=== PATIENT | female | born 1935 | race Caucasian/White ===

== ENCOUNTER 2023-02-25 13:06 | Inpatient (IN) ==
[2023-02-25] MEDS ORDERED: XOPENEX 1.25 MG/3 ML NEBULE NEB PRN (15:40)
[2023-02-25 16:02] VITALS: BMI 39.4
[2023-02-25 16:52] LABS: BASOPHILS % (AUTO) 0.2 % (0.2-1.0); EOSINOPHILS # (AUTO) 0.2 x10^3/uL (0.0-0.2); EOSINOPHILS % (AUTO) 1.6 % (0.9-2.9); HEMATOCRIT 34.7 % (36.0-47.0); HEMOGLOBIN 11.3 g/dL (12.0-16.0); LYMPHOCYTES # (AUTO) 0.7 X10^3/uL (1.3-2.9); LYMPHOCYTES % (AUTO) 4.7 % (21.0-51.0); MEAN CORPUSCULAR HGB CONC 32.4 g/dL (33.0-35.0); MEAN CORPUSCULAR VOLUME 98.6 fL (80.0-100.0); MEAN PLATELET VOLUME 11.3 fL (7.4-11.0); MONOCYTES % (AUTO) 13.1 % (0.0-13.0); NEUTROPHILS # (AUTO) 12.1 x10^3/uL (2.2-4.8); NEUTROPHILS % (AUTO) 80.4 % (42.0-75.0); PLATELET COUNT 123 X10^3/uL (150.0-450.0); RED BLOOD COUNT 3.52 X10^6/uL (3.5-5.4); RED CELL DISTRIBUTION WIDTH 15.2 % (11.6-16.5); WHITE BLOOD COUNT 15.1 X10^3/uL (3.6-10.0)
[2023-02-25] MEDS ORDERED: TYLENOL 325 MG TAB PO PRN (17:00)
[2023-02-25 17:06] LABS: CALCIUM 9.6 mg/dL (8.5-10.1); CARBON DIOXIDE 40.9 mmol/L (21-32); COR CA(FOR HYPOALB) 11.2 mg/dL (8.5-10.1); CREATININE 1.36 mg/dL (0.55-1.02); POTASSIUM 3.5 mmol/L (3.5-5.1); TOTAL PROTEIN 6.4 g/dL (6.4-8.2)
[2023-02-25] MEDS ORDERED: CONSULT PHARMACY - POTASSIUM & MAGNESIUM XX SCH (20:00)
[2023-02-25] MEDS: ELIQUIS PO SCH (20:04)
[2023-02-25] MEDS: SNACK - Diabetic Appropriate PO SCH (20:04)
[2023-02-25] MEDS: PRAVACHOL PO SCH (20:04)
--- NOTE | 2023-02-25 20:23 | PT/OTEVAL ---
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 Prior to hospitalization, pt was independent for all mobility tasks with use of rollator within home and short community distances. Pt able to drive short distances as well. DME: Rollator, FWW, Lift Chair (which she sleeps in), Shower Chair and O2 Concentrator (reports that she was using O2 as needed at home). Family assisted with household task including cleaning, meal prep and errands. Pt has several children and all live close by and assist as needed. History of Present Illness: Pt is an 88 year old female who was admitted to [facility] on 02/17/2023- per report pt was initially to ED on 02/12/2023 and diagnosed with UTI and sent home on oral ABT, pt's condition continued to worsen and then pt began with AMS at which time pt was brought back the ED for asse ssment and was admitted with dx of AMS, UTI and found to have pneumonia. Pt was treated and medically stabilized and due to deconditioning and weakness unable to return home independently and was transferred to [facility] for swing bed program on the afternoon of 02/25/2023. - COGNITION Mental Status: Alert, Oriented, Name, Date, Place, Purpose Communication Status: Verbal Ability to Follow Directions: 2 Step Affect: Calm - PAIN Back Pain Scale: Moderate (5-6) Comments: "I always have back pain like this, it's nothing new" - BED MOBILITY Rolling: Minimal Scooting: Moderate - TRANSFERS Supine to Sit: Minimal, Moderate Supine Comment: Min for supine to sit, mod for sit to supine for LE management Sit to Stand: Minimal Sit or Stand Pivot: Minimal Safety Comment: Proper hand placement during functional transfers Safety (requires cues for:): Hand Placement Precaution - BALANCE Static Sitting: Good Standing: Fair Balance Comment: Fair- Dynamic Sitting: Good Standing: Poor - NEUROMOTOR/SENSATION Hemal. Lower Ext Sensation: WFL Coordination: WFL Proprioception: WFL - ROM Bilateral LE ROM: WFL Muscle Tone: WFL - STRENGTH Bilateral LE Strength Number: 3 Other comment: 07/13 - GAIT Pt. ambulates how many feet?: 30 Amount of Assistance Required: Minimal Type of Assistive Device: Rolling Walker Comments: Pt's rollator. - TREATMENT Date: 02/25/23 Time: 16:15 Treatment Type: Evaluation Treatment Provided: Gait, Therapeutic Activities - TOTAL TREATMENT TIME Total Time: 120 - POST ASSESSMENT Post Assessment Comment: Pt was found supine in bed in room with son and daughter in law present in room. Pt able to provide history & PLOF information with family confirming & providing additional details. Pt does not sleep in a bed at home but in a lift recliner chair (and has for the last 15 years). Pt required min assist for transition from supine to sitting at EOB. Once at EOB, no LOB or complaints noted. Pt required mod cues for proper hand placement and then able to complete sit to stand transfer from EOB with min assist. Pt had initial period of unsteadiness when coming to standing position requiring mod assist for balance but then able to recover and require touch to min assist for balance. Pt performed gait tasks with rollator with min assist for 30ft x 2 requiring prolonged therapeutic rest break between bouts due to fatigue. Review of PT POC and goals with pt and family with goal of discharging back home with family support as needed and home health services. Pt is motivated to participate and would benefit from participation in swing bed therapy program to address all deficits and facilitate highest level of function and safe discharge planning. - EXIT DISPOSITION Exit Position: BED Call light in reach: Yes Bed Alarm On: YES Comments: Son and daughter in law present in room. PT/OT ASSESSMENT - PT Problem List: Decreased Bed Mobility, Decreased Transfers, Decreased Gait, Decreased Balance, Decreased Safety, Decreased LE Strength - PT GOALS Short Term Goals Days: 10 Mobility: NA Transfers: Pt will perform functional transfers with touch assist Gait: Pt will ambulate 100ft with rollator with touch assist Balance: Pt will increase static standing balance to good [place] Goals Days: 20 Mobility: NA Transfers: Pt will functional transfers with mod I Gait: Pt will ambulate 200ft with rollator with mod I Balance: Pt will increase dynamic standing balance to fair+/good- ROM/Strength: Pt will increase BLE strength to 5/5 Others: Pt will ascend/descend 4 steps with HR with supervision - PATIENT GOALS Patient/Family Goals: "I want to get my strength and independence back" Goals Discussed with Patient/Family: Yes Rehabilitation Potential: Good to meet stated goals Justification for Potential: Facilitate highest level of function and safe discharge planning Weakness and Barriers: None - PLAN Suggested Treatment Plan: Bed Mobility Training, Therapeutic Activity, Gait Training, Neuro Re-education, Therapeutic Ex with HEP, Patient Education - FREQUENCY AND DURATION PT: 5-6x per week x 20 days Expected Continuation of Care at Discharge: Home Health
[2023-02-25] MEDS ORDERED: PULMICORT NEB TX 0.5 MG NEB SCH (21:00)
[2023-02-25] MEDS ORDERED: DUONEB 0.5 MG/3 MG (3 mL) NEB SCH (21:00)
[2023-02-25] MEDS ORDERED: MICRO K EXTEN CAP 10 MEQ PO SCH (21:00)
[2023-02-25] MEDS ORDERED: COMBIVENT RESPIMAT INH SCH (21:00)
[2023-02-26] MEDS: SYNTHROID 112 mcg TAB PO SCH (06:15)
[2023-02-26] MEDS: GLUCOTROL PO SCH (06:16)
--- NOTE | 2023-02-26 08:01 | RAD ---
EXAM:Portable chestHISTORY:PneumoniaCOMPARISON:None r.br.br.br noted. Right lung and left upper lung harvey are clear. Blunting of left costophrenic angle suggest left pleural effusion. There is increased density in the retrocardiac area of left lower lobe obscuring the hemidiaphragm. Findings could be on the basis of pleural effusion, atelectasis, consolidation or combination. Bony thorax is unremarkable.IMPRESSION:Cardiomegaly without congestive heart failureLeft pleural effusionIncreased density retrocardiac area left lower lobe obscuring left hemidiaphragm. Differential diagnosis as aboveTHIS IS AN ELECTRONICALLY VERIFIED FINAL ORCCET7402/26/2023 7:58 AM - Electronically signed by Trey Adame MD
[2023-02-26] MEDS ORDERED: [UNRECOGNIZED DRUG - OTHER] IN SCH (09:00)
[2023-02-26] MEDS ORDERED: TOPROL XL PO ONE (09:01)
[2023-02-26] MEDS: COZAAR PO SCH (09:10)
[2023-02-26] MEDS: TOPROL XL PO SCH (09:11)
[2023-02-26] MEDS: JANUVIA PO SCH (09:12)
[2023-02-26] MEDS: VITAMIN D3 25 mcg (1,000 UNITS) PO SCH (09:13)
[2023-02-26] MEDS: ELIQUIS PO SCH ×2 (09:14→20:14)
[2023-02-26] MEDS: CARDIZEM CD 180 MG 24-HR PO SCH (09:14)
[2023-02-26] MEDS: ZYLOPRIM PO SCH (09:14)
[2023-02-26] MEDS: ZINC SULFATE PO SCH (09:14)
[2023-02-26] MEDS: ULTRAM PO PRN (12:35)
[2023-02-26] MEDS ORDERED: NovoLIN R (or HumuLIN R) ONE (17:06)
[2023-02-26] MEDS: NovoLIN R (or HumuLIN R) SC PRN ×2 (17:12→20:21)
[2023-02-26] MEDS: PRAVACHOL PO SCH (20:14)
[2023-02-26] MEDS: SNACK - Diabetic Appropriate PO SCH (20:17)
[2023-02-27] MEDS: SYNTHROID 112 mcg TAB PO SCH (06:01)
[2023-02-27] MEDS: GLUCOTROL PO SCH (06:01)
--- NOTE | 2023-02-27 06:49 | DR.H&P ---
H&P History & Physical for Day of: H&P Date: 02/25/23 Chief Complaint Chief Complaint: Physical rehabilitation Allergies Allergies Allergy/AdvReac Type Severity Reaction Status Date / Time iron Allergy Verified 02/25/23 16:51 History of Present Illness History of Present Illness: Patient is a 88-year-old female with a history of hypothyroidism, diabetes mellitus, hyperlipidemia, COPD(BL~2L), atrial fibrillation admitted as a swing bed for physical rehabilitation. She was recently discharged after having altered mental status due to urinary tract infection and pneumonia. She completed antibiotic course of Zithromax for 5 days and Rocephin for 8 days. Labs: WBC 15.1, hemoglobin 11.3, platelets 123, sodium 139, potassium 3.5, creatinine 1.36, glucose 131. Patient will continue with physical therapy. We will restart all home medications. Patient denies any symptoms of infection including fevers or chills. We will continue to closely monitor and follow-up labs. Past Surgical History Surgical History: Cholecystectomy, Hysterectomy and Ortho Surgery Family History Family Medical History: Diabetes Mellitus and Hypertension Medications Home Medications: Home Medications Medication Instructions Recorded Confirmed Type acetaminophen 325 mg tablet 650 mg PO Q6H 02/25/23 02/25/23 History (Tylenol) allopurinol 100 mg tablet 100 mg PO DAILY 02/25/23 02/25/23 History apixaban 2.5 mg tablet (Eliquis) 2.5 mg PO BID 02/25/23 02/25/23 History cholecalciferol (vitamin D3) 50 2,000 mcg PO DAILY 02/25/23 02/25/23 History mcg (2,000 unit) tablet (Vitamin D3) diltiazem HCl 180 mg capsule,24 180 mg PO DAILY 02/25/23 02/25/23 History hr,extended release fluticasone furoate 200 1 inh inhalation DAILY 02/25/23 02/25/23 History mcg-vilanterol 25 mcg/dose inhalation powder (Breo Ellipta) glipizide 10 mg tablet 10 mg PO BID 02/25/23 02/25/23 History ipratropium 20 mcg-albuterol 100 1 puff inhalation QID 02/25/23 02/25/23 History mcg/actuation mist for inhalation (Combivent Respimat) levothyroxine 112 mcg tablet 112 mcg PO DAILY 02/25/23 02/25/23 History (Synthroid) losartan 100 mg tablet 100 mg PO QDAY 02/25/23 02/25/23 History metoprolol succinate 200 mg 200 mg PO QDAY 02/25/23 02/25/23 History tablet,extended release 24 hr pravastatin 20 mg tablet 40 mg PO HS 02/25/23 02/25/23 History sitagliptin phosphate 25 mg tablet 50 mg PO DAILY 02/25/23 02/25/23 History (Januvia) zinc gluconate 50 mg tablet 50 mg PO DAILY 02/25/23 02/25/23 History Labs 02/25/23 16:28 02/25/23 16:28 Labs: Laboratory WBC 15.1 X10^3/uL (3.6-10.0) H 02/25/23 16: RBC 3.52 X10^6/uL (3.5-5.4) 02/25/23 16:28 Hgb 11.3 g/dL (12.0-16.0) L 02/25/23 16:28 Hct 34.7 % (36.0-47.0) L 02/25/23 16:28 MCV 98.6 fL (80.0-100.0) 02/25/23 16: MCH 32.0 pg (27.0-34.0) 02/25/23 16:28 MCHC 32.4 g/dL (33.0-35.0) L 02/25/23 16:28 RDW 15.2 % (11.6-16.5) 02/25/23 16:28 Plt Count 123 X10^3/uL (150.0-450.0) L 02/25/23 16:28 MPV 11.3 fL (7.4-11.0) H 02/25/23 16:28 Neut % (Auto) 80.4 % (42.0-75.0) H 02/25/23 16:28 Lymph % (Auto) 4.7 % (21.0-51.0) L 02/25/23 16:28 [place] % (Auto) 13.1 % (0.0-13.0) H 02/25/23 16:28 Eos % (Auto) 1.6 % (0.9-2.9) 02/25/23 16:28 Baso % (Auto) 0.2 % (0.2-1.0) 02/25/23 16:28 Neut # (Auto) 12.1 x10^3/uL (2.2-4.8) H 02/25/23 16:28 Lymph # (Auto) 0.7 X10^3/uL (1.3-2.9) L 02/25/23 16:28 [place] # (Auto) 2.0 x10^3/uL (0.3-0.8) H 02/25/23 16:28 Eos # (Auto) 0.2 x10^3/uL (0.0-0.2) 02/25/23 16: Baso # (Auto) 0.0 X10^3/uL (0.0-0.1) 02/25/23 16: Absolute Nucleated RBC 0.1 /100WBC 02/25/23 16:28 Sodium 139 mmol/L (136-145) 02/25/23 16:28 Corrected Sodium 140 mmol/L (136-145) 02/25/23 16:28 Potassium 3.5 mmol/L (3.5-5.1) 02/25/23 16: Chloride 96 mmol/L (98-107) L 02/25/23 16:28 Carbon Dioxide 40.9 mmol/L (21-32) H 02/25/23 16:28 BUN 44 mg/dL (7-18) H 02/25/23 16:28 Creatinine 1.36 mg/dL (0.55-1.02) H 02/25/23 16:28 Est GFR (MDRD) Af Amer 47 (>60) L 02/25/23 16:28 Est GFR (MDRD) Non-Af 39 (>60) L 02/25/23 16:28 Glucose 131 mg/dL (65-99) H 02/25/23 16:28 POC Glucose (mg/dL) 149 mg/dL (65-99) H 02/27/23 05:39 Calcium 9.6 mg/dL (8.5-10.1) 02/25/23 16:28 Corrected Calcium 11.2 mg/dL (8.5-10.1) H 02/25/23 16:28 Magnesium 2.3 mg/dL (2.0-2.9) 02/26/23 05:47 Total Bilirubin 0.40 mg/dL (0.2-1.0) 02/25/23 16:28 AST 47 Units/L (15-37) H 02/25/23 16:28 ALT 39 Units/L (12-78) 02/25/23 16:28 Alkaline Phosphatase 70 Units/L (46-116) 02/25/23 16:28 Total Protein 6.4 g/dL (6.4-8.2) 02/25/23 16:28 Albumin 2.0 g/dL (3.4-5.0) L 02/25/23 16:28 Globulin 4.4 g/dL (2.5-4.5) 02/25/23 16:28 Albumin/Globulin Ratio 0.5 Ratio (1.1-2.1) L 02/25/23 16:28 Review of Systems Constitutional: Weakness Eyes: No Symptoms Reported ENT: No Symptoms Reported Respiratory: No Symptoms Reported Cardiovascular: No Symptoms Reported Gastrointestinal: No Symptoms Reported Genitourinary: No Symptoms Reported Musculoskeletal: No Symptoms Reported Skin: No Symptoms Reported Neurological: No Symptoms Reported Oriented: Normal Eyes: Normal Ear: Normal Nose: Normal Throat: Normal Respiratory: Diminished Throughout Cardiovascular: Normal : Normal Auscultation: Bowel Sounds: Normal Palpation: Normal Tenderness: Normal Skin: Normal Musculoskeletal: Normal Psychiatric: Normal Mood Description: Calm and Appropriate Affect: Normal Speech Pattern: Clear and Appropriate Assessment/Plan (1) Hypothyroidism: Status: Active (2) Diabetes mellitus type 2: Status: Active (3) Osteoarthritis: Status: Active (4) Essential hypertension: Status: Active (5) Hyperlipidemia: Status: Active (6) Chronic atrial fibrillation: Status: Acute Review H&P Reviewed: Yes Patient was examined?: Yes
[2023-02-27] MEDS ORDERED: TOPROL XL PO ONE (08:30)
[2023-02-27] MEDS: ELIQUIS PO SCH ×2 (08:58→20:37)
[2023-02-27] MEDS: VITAMIN D3 25 mcg (1,000 UNITS) PO SCH (08:58)
[2023-02-27] MEDS: CARDIZEM CD 180 MG 24-HR PO SCH (08:59)
[2023-02-27] MEDS: ZINC SULFATE PO SCH (08:59)
[2023-02-27] MEDS: ZYLOPRIM PO SCH (08:59)
[2023-02-27] MEDS: JANUVIA PO SCH (08:59)
[2023-02-27] MEDS: TOPROL XL PO SCH (08:59)
[2023-02-27] MEDS: COZAAR PO SCH (08:59)
[2023-02-27] MEDS: SNACK - Diabetic Appropriate PO SCH (20:37)
[2023-02-27] MEDS: PRAVACHOL PO SCH (20:37)
[2023-02-28] MEDS: SYNTHROID 112 mcg TAB PO SCH (06:07)
[2023-02-28] MEDS: GLUCOTROL PO SCH (06:07)
[2023-02-28] MEDS ORDERED: TOPROL XL PO ONE (08:22)
[2023-02-28] MEDS: ELIQUIS PO SCH ×2 (09:18→20:38)
[2023-02-28] MEDS: JANUVIA PO SCH (09:18)
[2023-02-28] MEDS: VITAMIN D3 25 mcg (1,000 UNITS) PO SCH (09:19)
[2023-02-28] MEDS: CARDIZEM CD 180 MG 24-HR PO SCH (09:19)
[2023-02-28] MEDS: ZINC SULFATE PO SCH (09:19)
[2023-02-28] MEDS: TOPROL XL PO SCH (09:19)
[2023-02-28] MEDS: COZAAR PO SCH (09:19)
[2023-02-28] MEDS: ZYLOPRIM PO SCH (09:19)
[2023-02-28] MEDS: PRAVACHOL PO SCH (20:38)
[2023-02-28] MEDS: SNACK - Diabetic Appropriate PO SCH (20:57)
[2023-03-01 05:12] LABS: BASOPHILS # (AUTO) 0.1 X10^3/uL (0.0-0.1); BASOPHILS % (AUTO) 1.4 % (0.2-1.0); EOSINOPHILS # (AUTO) 0.3 x10^3/uL (0.0-0.2); EOSINOPHILS % (AUTO) 4.2 % (0.9-2.9); HEMATOCRIT 30.1 % (36.0-47.0); HEMOGLOBIN 9.6 g/dL (12.0-16.0); LYMPHOCYTES # (AUTO) 0.8 X10^3/uL (1.3-2.9); LYMPHOCYTES % (AUTO) 10.7 % (21.0-51.0); MEAN CORPUSCULAR HEMOGLOBIN 31.8 pg (27.0-34.0); MEAN CORPUSCULAR HGB CONC 31.8 g/dL (33.0-35.0); MEAN CORPUSCULAR VOLUME 99.9 fL (80.0-100.0); MEAN PLATELET VOLUME 10.3 fL (7.4-11.0); MONOCYTES # (AUTO) 0.8 x10^3/uL (0.3-0.8); MONOCYTES % (AUTO) 11.3 % (0.0-13.0); NEUTROPHILS # (AUTO) 5.2 x10^3/uL (2.2-4.8); NEUTROPHILS % (AUTO) 72.4 % (42.0-75.0); PLATELET COUNT 146 X10^3/uL (150.0-450.0); RED BLOOD COUNT 3.01 X10^6/uL (3.5-5.4); RED CELL DISTRIBUTION WIDTH 15.1 % (11.6-16.5); WHITE BLOOD COUNT 7.1 X10^3/uL (3.6-10.0)
[2023-03-01 05:20] LABS: ALANINE AMINOTRANSFERASE 41 Units/L (12-78); ALBUMIN 1.9 g/dL (3.4-5.0); ALKALINE PHOSPHATASE 63 Units/L (46-116); ASPARTATE AMINO TRANSFERASE 28 Units/L (15-37); BLOOD UREA NITROGEN 36 mg/dL (7-18); CALCIUM 9.4 mg/dL (8.5-10.1); CHLORIDE 101 mmol/L (98-107); COR CA(FOR HYPOALB) 11.1 mg/dL (8.5-10.1); COR NA(FOR HYPERGLY) 144 mmol/L (136-145); GLUCOSE 132 mg/dL (65-99); POTASSIUM 4.1 mmol/L (3.5-5.1); SODIUM 143 mmol/L (136-145); TOTAL PROTEIN 5.5 g/dL (6.4-8.2); eGFR NON BLACK RACES 56 (>60)
[2023-03-01 05:24] LABS: CARBON DIOXIDE 43.8 mmol/L (21-32)
[2023-03-01] MEDS: GLUCOTROL PO SCH (06:02)
[2023-03-01] MEDS: SYNTHROID 112 mcg TAB PO SCH (06:02)
[2023-03-01] MEDS ORDERED: TOPROL XL PO ONE (08:59)
[2023-03-01] MEDS: ZYLOPRIM PO SCH (09:24)
[2023-03-01] MEDS: VITAMIN D3 25 mcg (1,000 UNITS) PO SCH (09:24)
[2023-03-01] MEDS: JANUVIA PO SCH (09:24)
[2023-03-01] MEDS: COZAAR PO SCH (09:24)
[2023-03-01] MEDS: ELIQUIS PO SCH ×2 (09:24→20:13)
[2023-03-01] MEDS: TOPROL XL PO SCH (09:24)
[2023-03-01] MEDS: ZINC SULFATE PO SCH (09:24)
[2023-03-01] MEDS: CARDIZEM CD 180 MG 24-HR PO SCH (09:25)
[2023-03-01] MEDS: SNACK - Diabetic Appropriate PO SCH (20:01)
[2023-03-01] MEDS ORDERED: STERILE WATER IRRIGATION IR ONE (20:09)
[2023-03-01] MEDS: PRAVACHOL PO SCH (20:13)
[2023-03-02] MEDS: SYNTHROID 112 mcg TAB PO SCH (05:47)
[2023-03-02] MEDS: GLUCOTROL PO SCH (06:00)
[2023-03-02] MEDS ORDERED: TOPROL XL PO ONE (09:21)
[2023-03-02] MEDS: ELIQUIS PO SCH ×2 (09:37→20:18)
[2023-03-02] MEDS: VITAMIN D3 25 mcg (1,000 UNITS) PO SCH (09:37)
--- NOTE | 2023-03-02 09:37 | PCM.PROG ---
Progress Note Progress Note for Day of Date of Exam: 02/27/23 Subjective Subjective: Patient is a 88-year-old female with a history of hypothyroidism, diabetes mellitus, hyperlipidemia, COPD(BL~2L), atrial fibrillation admitted as a swing bed for physical rehabilitation after recovering from urinary tract infection and pneumonia. This morning she is resting comfortably in bed, no acute events overnight. Labs: WBC 15.1, hemoglobin 11.3, platelets 123, sodium 139, potassium 3.5, creatinine 1.36, glucose 131. Patient will continue with physical therapy. Home medications have been resumed. Otherwise, continue with current treatment plan. We will continue to closely monitor. Past Medical Family Social History Allergies: Allergies iron Allergy (Verified 02/25/23 16:51) Review of Systems ROS: No change since H&P Vital Signs and I&O's Vital Signs: Vital Signs Temperature 97.8 F Pulse Rate [Left Brachial] 76 Respiratory Rate 20 Blood Pressure [Left Arm] 157/60 O2 Sat by Pulse Oximetry 96 Intake and Output: Intake & Output 02/27/23 02/28/23 03/01/23 03/02/23 23:59 23:59 23:59 23:59 Intake Total 1482 / 1482 1320 / 1320 1240 / 1240 360 / 360 Balance 1482 / 1482 1320 / 1320 1240 / 1240 360 / 360 Physical Exam Oriented: Normal Eyes: Normal Ear: Normal Nose: Normal Throat: Normal Respiratory: Normal Cardiovascular: Normal : Normal Auscultation: Bowel Sounds: Normal Tenderness: Normal Skin: Normal Musculoskeletal: Normal Psychiatric: Normal Mood Description: Calm and Appropriate Affect: Normal Speech Pattern: Clear Laboratory and Diagnostics 03/01/23 04:13 03/01/23 04:13 Labs: Laboratory WBC 7.1 X10^3/uL (3.6-10.0) 03/01/23 04:13 RBC 3.01 X10^6/uL (3.5-5.4) L 03/01/23 04:13 Hgb 9.6 g/dL (12.0-16.0) L 03/01/23 04:13 Hct 30.1 % (36.0-47.0) L 03/01/23 04:13 MCV 99.9 fL (80.0-100.0) 03/01/23 04:13 MCH 31.8 pg (27.0-34.0) 03/01/23 04:13 MCHC 31.8 g/dL (33.0-35.0) L 03/01/23 04:13 RDW 15.1 % (11.6-16.5) 03/01/23 04:13 Plt Count 146 X10^3/uL (150.0-450.0) L 03/01/23 04:13 MPV 10.3 fL (7.4-11.0) 03/01/23 04:13 Neut % (Auto) 72.4 % (42.0-75.0) 03/01/23 04:13 Lymph % (Auto) 10.7 % (21.0-51.0) L 03/01/23 04:13 [place] % (Auto) 11.3 % (0.0-13.0) 03/01/23 04:13 Eos % (Auto) 4.2 % (0.9-2.9) H 03/01/23 04:13 Baso % (Auto) 1.4 % (0.2-1.0) H 03/01/23 04:13 Neut # (Auto) 5.2 x10^3/uL (2.2-4.8) H 03/01/23 04:13 Lymph # (Auto) 0.8 X10^3/uL (1.3-2.9) L 03/01/23 04:13 [place] # (Auto) 0.8 x10^3/uL (0.3-0.8) 03/01/23 04:13 Eos # (Auto) 0.3 x10^3/uL (0.0-0.2) H 03/01/23 04:13 Baso # (Auto) 0.1 X10^3/uL (0.0-0.1) 03/01/23 04:13 Absolute Nucleated RBC 0.0 /100WBC 03/01/23 04:13 Sodium 143 mmol/L (136-145) 03/01/23 04:13 Corrected Sodium 144 mmol/L (136-145) 03/01/23 04:13 Potassium 4.1 mmol/L (3.5-5.1) 03/01/23 04:13 Chloride 101 mmol/L (98-107) 03/01/23 04:13 Carbon Dioxide 43.8 mmol/L (21-32) H 03/01/23 04:13 BUN 36 mg/dL (7-18) H 03/01/23 04:13 Creatinine 1.00 mg/dL (0.55-1.02) 03/01/23 04:13 Est GFR (MDRD) Af Amer > 60 (>60) 03/01/23 04:13 Est GFR (MDRD) Non-Af 56 (>60) L 03/01/23 04:13 Glucose 132 mg/dL (65-99) H 03/01/23 04:13 POC Glucose (mg/dL) 119 mg/dL (65-99) H 03/02/23 05:12 Calcium 9.4 mg/dL (8.5-10.1) 03/01/23 04:13 Corrected Calcium 11.1 mg/dL (8.5-10.1) H 03/01/23 04:13 Magnesium 2.3 mg/dL (2.0-2.9) 02/26/23 05:47 Total Bilirubin 0.30 mg/dL (0.2-1.0) 03/01/23 04:13 AST 28 Units/L (15-37) 03/01/23 04:13 ALT 41 Units/L (12-78) 03/01/23 04:13 Alkaline Phosphatase 63 Units/L (46-116) 03/01/23 04:13 Total Protein 5.5 g/dL (6.4-8.2) L 03/01/23 04:13 Albumin 1.9 g/dL (3.4-5.0) L 03/01/23 04:13 Globulin 3.6 g/dL (2.5-4.5) 03/01/23 04:13 Albumin/Globulin Ratio 0.5 Ratio (1.1-2.1) L 03/01/23 04:13 Plan (1) Hypothyroidism: Status: Active (2) Diabetes mellitus type 2: Status: Active (3) Osteoarthritis: Status: Active (4) Essential hypertension: Status: Active (5) Hyperlipidemia: Status: Active (6) Chronic atrial fibrillation: Status: Acute
[2023-03-02] MEDS: COZAAR PO SCH (09:38)
[2023-03-02] MEDS: JANUVIA PO SCH (09:38)
[2023-03-02] MEDS: CARDIZEM CD 180 MG 24-HR PO SCH (09:38)
[2023-03-02] MEDS: ZINC SULFATE PO SCH (09:39)
[2023-03-02] MEDS: TOPROL XL PO SCH (09:39)
[2023-03-02] MEDS: ZYLOPRIM PO SCH (09:39)
[2023-03-02] MEDS: NovoLIN R (or HumuLIN R) SC PRN (18:09)
[2023-03-02] MEDS: PRAVACHOL PO SCH (20:18)
[2023-03-02] MEDS: SNACK - Diabetic Appropriate PO SCH (20:33)
[2023-03-02] MEDS: NYSTATIN POWDER TOP PRN (20:40)
--- NOTE | 2023-03-02 20:49 | PCM.PROG ---
Progress Note Progress Note for Day of Date of Exam: 03/02/23 Subjective Subjective: Patient is a 88-year-old female with a history of hypothyroidism, diabetes mellitus, hyperlipidemia, COPD(BL~2L), atrial fibrillation admitted as a swing bed for physical rehabilitation after recovering from urinary tract infection and pneumonia. This morning she is sitting in recliner. She states she has been working with physical therapy and it is helping her. No acute events overnight. Labs: WBC 7.1, hemoglobin 9.6, platelets 146, sodium 143, potassium 4.1, creatinine 1.00, glucose 132. Patient will continue with physical therapy. Home medications have been resumed. Otherwise, continue with current treatment plan. We will continue to closely monitor. Past Medical Family Social History Allergies: Allergies iron Allergy (Verified 02/25/23 16:51) Review of Systems ROS: No change since H&P Vital Signs and I&O's Vital Signs: Vital Signs Temperature 98.7 F Pulse Rate [Left Brachial] 62 Pulse Rate 67 Respiratory Rate 25 Blood Pressure [Left Arm] 126/62 O2 Sat by Pulse Oximetry 98 O2 Sat by Pulse Oximetry 95 Intake and Output: Intake & Output 02/27/23 02/28/23 03/01/23 03/02/23 23:59 23:59 23:59 23:59 Intake Total 1482 / 1482 1320 / 1320 1240 / 1240 1080 / 1080 Balance 1482 / 1482 1320 / 1320 1240 / 1240 1080 / 1080 Physical Exam Oriented: Normal Eyes: Normal Ear: Normal Nose: Normal Throat: Normal Respiratory: Normal Cardiovascular: Normal : Normal Auscultation: Bowel Sounds: Normal Tenderness: Normal Skin: Normal Musculoskeletal: Normal Psychiatric: Normal Mood Description: Calm and Appropriate Affect: Normal Speech Pattern: Clear Laboratory and Diagnostics 03/01/23 04:13 03/01/23 04:13 Labs: Laboratory WBC 7.1 X10^3/uL (3.6-10.0) 03/01/23 04:13 RBC 3.01 X10^6/uL (3.5-5.4) L 03/01/23 04:13 Hgb 9.6 g/dL (12.0-16.0) L 03/01/23 04:13 Hct 30.1 % (36.0-47.0) L 03/01/23 04:13 MCV 99.9 fL (80.0-100.0) 03/01/23 04:13 MCH 31.8 pg (27.0-34.0) 03/01/23 04:13 MCHC 31.8 g/dL (33.0-35.0) L 03/01/23 04:13 RDW 15.1 % (11.6-16.5) 03/01/23 04:13 Plt Count 146 X10^3/uL (150.0-450.0) L 03/01/23 04:13 MPV 10.3 fL (7.4-11.0) 03/01/23 04:13 Neut % (Auto) 72.4 % (42.0-75.0) 03/01/23 04:13 Lymph % (Auto) 10.7 % (21.0-51.0) L 03/01/23 04:13 [place] % (Auto) 11.3 % (0.0-13.0) 03/01/23 04:13 Eos % (Auto) 4.2 % (0.9-2.9) H 03/01/23 04:13 Baso % (Auto) 1.4 % (0.2-1.0) H 03/01/23 04:13 Neut # (Auto) 5.2 x10^3/uL (2.2-4.8) H 03/01/23 04:13 Lymph # (Auto) 0.8 X10^3/uL (1.3-2.9) L 03/01/23 04:13 [place] # (Auto) 0.8 x10^3/uL (0.3-0.8) 03/01/23 04:13 Eos # (Auto) 0.3 x10^3/uL (0.0-0.2) H 03/01/23 04:13 Baso # (Auto) 0.1 X10^3/uL (0.0-0.1) 03/01/23 04:13 Absolute Nucleated RBC 0.0 /100WBC 03/01/23 04:13 Sodium 143 mmol/L (136-145) 03/01/23 04:13 Corrected Sodium 144 mmol/L (136-145) 03/01/23 04:13 Potassium 4.1 mmol/L (3.5-5.1) 03/01/23 04:13 Chloride 101 mmol/L (98-107) 03/01/23 04:13 Carbon Dioxide 43.8 mmol/L (21-32) H 03/01/23 04:13 BUN 36 mg/dL (7-18) H 03/01/23 04:13 Creatinine 1.00 mg/dL (0.55-1.02) 03/01/23 04:13 Est GFR (MDRD) Af Amer > 60 (>60) 03/01/23 04:13 Est GFR (MDRD) Non-Af 56 (>60) L 03/01/23 04:13 Glucose 132 mg/dL (65-99) H 03/01/23 04:13 POC Glucose (mg/dL) 176 mg/dL (65-99) H 03/02/23 19:12 Calcium 9.4 mg/dL (8.5-10.1) 03/01/23 04:13 Corrected Calcium 11.1 mg/dL (8.5-10.1) H 03/01/23 04:13 Magnesium 2.3 mg/dL (2.0-2.9) 02/26/23 05:47 Total Bilirubin 0.30 mg/dL (0.2-1.0) 03/01/23 04:13 AST 28 Units/L (15-37) 03/01/23 04:13 ALT 41 Units/L (12-78) 03/01/23 04:13 Alkaline Phosphatase 63 Units/L (46-116) 03/01/23 04:13 Total Protein 5.5 g/dL (6.4-8.2) L 03/01/23 04:13 Albumin 1.9 g/dL (3.4-5.0) L 03/01/23 04:13 Globulin 3.6 g/dL (2.5-4.5) 03/01/23 04:13 Albumin/Globulin Ratio 0.5 Ratio (1.1-2.1) L 03/01/23 04:13 Plan (1) Hypothyroidism: Status: Active (2) Diabetes mellitus type 2: Status: Active (3) Osteoarthritis: Status: Active (4) Essential hypertension: Status: Active (5) Hyperlipidemia: Status: Active (6) Chronic atrial fibrillation: Status: Acute
[2023-03-03] MEDS: SYNTHROID 112 mcg TAB PO SCH (05:20)
[2023-03-03] MEDS: GLUCOTROL PO SCH (06:06)
[2023-03-03] MEDS ORDERED: TOPROL XL PO ONE (08:55)
[2023-03-03] MEDS: CARDIZEM CD 180 MG 24-HR PO SCH (09:00)
[2023-03-03] MEDS: ZYLOPRIM PO SCH (09:00)
[2023-03-03] MEDS: VITAMIN D3 25 mcg (1,000 UNITS) PO SCH (09:00)
[2023-03-03] MEDS: COZAAR PO SCH (09:00)
[2023-03-03] MEDS: ZINC SULFATE PO SCH (09:00)
[2023-03-03] MEDS: JANUVIA PO SCH (09:01)
[2023-03-03] MEDS: TOPROL XL PO SCH (09:01)
[2023-03-03] MEDS: ELIQUIS PO SCH ×2 (09:01→20:23)
[2023-03-03] MEDS: PRAVACHOL PO SCH (20:23)
[2023-03-03] MEDS: SNACK - Diabetic Appropriate PO SCH (20:25)
[2023-03-04 04:58] LABS: BASOPHILS # (AUTO) 0.1 X10^3/uL (0.0-0.1); BASOPHILS % (AUTO) 0.9 % (0.2-1.0); EOSINOPHILS # (AUTO) 0.2 x10^3/uL (0.0-0.2); EOSINOPHILS % (AUTO) 3.5 % (0.9-2.9); HEMATOCRIT 30.8 % (36.0-47.0); HEMOGLOBIN 9.9 g/dL (12.0-16.0); LYMPHOCYTES # (AUTO) 0.7 X10^3/uL (1.3-2.9); LYMPHOCYTES % (AUTO) 11.7 % (21.0-51.0); MEAN CORPUSCULAR HEMOGLOBIN 31.8 pg (27.0-34.0); MEAN CORPUSCULAR VOLUME 99.4 fL (80.0-100.0); MEAN PLATELET VOLUME 9.6 fL (7.4-11.0); MONOCYTES # (AUTO) 0.6 x10^3/uL (0.3-0.8); MONOCYTES % (AUTO) 10.7 % (0.0-13.0); NEUTROPHILS # (AUTO) 4.2 x10^3/uL (2.2-4.8); NEUTROPHILS % (AUTO) 73.2 % (42.0-75.0); PLATELET COUNT 159 X10^3/uL (150.0-450.0); RED CELL DISTRIBUTION WIDTH 14.6 % (11.6-16.5); WHITE BLOOD COUNT 5.8 X10^3/uL (3.6-10.0)
[2023-03-04 05:06] LABS: ALANINE AMINOTRANSFERASE 38 Units/L (12-78); ALBUMIN 2.2 g/dL (3.4-5.0); ALKALINE PHOSPHATASE 72 Units/L (46-116); ASPARTATE AMINO TRANSFERASE 25 Units/L (15-37); BLOOD UREA NITROGEN 30 mg/dL (7-18); CALCIUM 9.6 mg/dL (8.5-10.1); CARBON DIOXIDE 43.1 mmol/L (21-32); CHLORIDE 103 mmol/L (98-107); COR NA(FOR HYPERGLY) 142 mmol/L (136-145); CREATININE 0.99 mg/dL (0.55-1.02); GLUCOSE 111 mg/dL (65-99); POTASSIUM 4.4 mmol/L (3.5-5.1); SODIUM 142 mmol/L (136-145); TOTAL PROTEIN 5.6 g/dL (6.4-8.2); eGFR NON BLACK RACES 56 (>60)
[2023-03-04] MEDS: GLUCOTROL PO SCH (06:02)
[2023-03-04] MEDS: SYNTHROID 112 mcg TAB PO SCH (06:02)
[2023-03-04] MEDS ORDERED: TOPROL XL PO ONE (07:41)
[2023-03-04] MEDS: ZINC SULFATE PO SCH (08:55)
[2023-03-04] MEDS: ZYLOPRIM PO SCH (08:55)
[2023-03-04] MEDS: VITAMIN D3 25 mcg (1,000 UNITS) PO SCH (08:55)
[2023-03-04] MEDS: TOPROL XL PO SCH (08:55)
[2023-03-04] MEDS: COZAAR PO SCH (08:56)
[2023-03-04] MEDS: JANUVIA PO SCH (08:56)
[2023-03-04] MEDS: ELIQUIS PO SCH ×2 (08:56→21:43)
[2023-03-04] MEDS: CARDIZEM CD 180 MG 24-HR PO SCH (08:57)
[2023-03-04] MEDS: NovoLIN R (or HumuLIN R) SC PRN (16:38)
[2023-03-04] MEDS: SNACK - Diabetic Appropriate PO SCH (21:43)
[2023-03-04] MEDS: PRAVACHOL PO SCH (21:43)
[2023-03-05] MEDS: SYNTHROID 112 mcg TAB PO SCH (05:31)
[2023-03-05] MEDS: GLUCOTROL PO SCH (06:04)
[2023-03-05] MEDS ORDERED: TOPROL XL PO ONE (08:14)
[2023-03-05] MEDS: VITAMIN D3 25 mcg (1,000 UNITS) PO SCH (08:19)
[2023-03-05] MEDS: ZINC SULFATE PO SCH (08:23)
[2023-03-05] MEDS: COZAAR PO SCH (08:25)
[2023-03-05] MEDS: TOPROL XL PO SCH (08:28)
[2023-03-05] MEDS: ELIQUIS PO SCH ×2 (08:29→20:29)
[2023-03-05] MEDS: ZYLOPRIM PO SCH (08:32)
[2023-03-05] MEDS: CARDIZEM CD 180 MG 24-HR PO SCH (08:34)
[2023-03-05] MEDS: JANUVIA PO SCH (08:35)
--- NOTE | 2023-03-05 14:47 | PCM.PROG ---
Progress Note Progress Note for Day of Date of Exam: 03/04/23 Subjective Subjective: Patient is a 88-year-old female with a history of hypothyroidism, diabetes mellitus, hyperlipidemia, COPD(BL~2L), atrial fibrillation admitted as a swing bed for physical rehabilitation after recovering from urinary tract infection and pneumonia. She is resting in bed this morning. She does continue to work with physical therapy and is making progress. No acute events overnight. Labs: WBC 5.8, hemoglobin 9.9, platelets 159, sodium 142, potassium 4.4, creatinine 0.99, glucose 111. Patient will continue with physical therapy. Home medications have been resumed. Otherwise, continue with current treatment plan. We will continue to closely monitor. Past Medical Family Social History Allergies: Allergies iron Allergy (Verified 02/25/23 16:51) Review of Systems ROS: No change since H&P Vital Signs and I&O's Intake and Output: Intake & Output 03/02/23 03/03/23 03/04/23 03/05/23 23:59 23:59 23:59 23:59 Intake Total 1560 / 1560 1606 / 1606 760 / 760 250 / 250 Balance 1560 / 1560 1606 / 1606 760 / 760 250 / 250 Physical Exam Oriented: Normal Eyes: Normal Ear: Normal Nose: Normal Throat: Normal Respiratory: Normal Cardiovascular: Normal : Normal Auscultation: Bowel Sounds: Normal Tenderness: Normal Skin: Normal Musculoskeletal: Normal Psychiatric: Normal Mood Description: Calm and Appropriate Affect: Normal Speech Pattern: Clear and Appropriate Laboratory and Diagnostics 03/04/23 04:26 03/04/23 04:26 Labs: Laboratory WBC 5.8 X10^3/uL (3.6-10.0) 03/04/23 04:26 RBC 3.10 X10^6/uL (3.5-5.4) L 03/04/23 04:26 Hgb 9.9 g/dL (12.0-16.0) L 03/04/23 04:26 Hct 30.8 % (36.0-47.0) L 03/04/23 04:26 MCV 99.4 fL (80.0-100.0) 03/04/23 04:26 MCH 31.8 pg (27.0-34.0) 03/04/23 04:26 MCHC 32.0 g/dL (33.0-35.0) L 03/04/23 04: RDW 14.6 % (11.6-16.5) 03/04/23 04:26 Plt Count 159 X10^3/uL (150.0-450.0) 03/04/23 04:26 MPV 9.6 fL (7.4-11.0) 03/04/23 04:26 Neut % (Auto) 73.2 % (42.0-75.0) 03/04/23 04:26 Lymph % (Auto) 11.7 % (21.0-51.0) L 03/04/23 04:26 [place] % (Auto) 10.7 % (0.0-13.0) 03/04/23 04:26 Eos % (Auto) 3.5 % (0.9-2.9) H 03/04/23 04:26 Baso % (Auto) 0.9 % (0.2-1.0) 03/04/23 04:26 Neut # (Auto) 4.2 x10^3/uL (2.2-4.8) 03/04/23 04:26 Lymph # (Auto) 0.7 X10^3/uL (1.3-2.9) L 03/04/23 04:26 [place] # (Auto) 0.6 x10^3/uL (0.3-0.8) 03/04/23 04:26 Eos # (Auto) 0.2 x10^3/uL (0.0-0.2) 03/04/23 04:26 Baso # (Auto) 0.1 X10^3/uL (0.0-0.1) 03/04/23 04:26 Absolute Nucleated RBC 0.1 /100WBC 03/04/23 04:26 Sodium 142 mmol/L (136-145) 03/04/23 04:26 Corrected Sodium 142 mmol/L (136-145) 03/04/23 04:26 Potassium 4.4 mmol/L (3.5-5.1) 03/04/23 04:26 Chloride 103 mmol/L (98-107) 03/04/23 04:26 Carbon Dioxide 43.1 mmol/L (21-32) H 03/04/23 04:26 BUN 30 mg/dL (7-18) H 03/04/23 04:26 Creatinine 0.99 mg/dL (0.55-1.02) 03/04/23 04:26 Est GFR (MDRD) Af Amer > 60 (>60) 03/04/23 04:26 Est GFR (MDRD) Non-Af 56 (>60) L 03/04/23 04:26 Glucose 111 mg/dL (65-99) H 03/04/23 04:26 POC Glucose (mg/dL) 143 mg/dL (65-99) H 03/05/23 05:09 Calcium 9.6 mg/dL (8.5-10.1) 03/04/23 04:26 Corrected Calcium 11.0 mg/dL (8.5-10.1) H 03/04/23 04:26 Magnesium 2.3 mg/dL (2.0-2.9) 02/26/23 05:47 Total Bilirubin 0.20 mg/dL (0.2-1.0) 03/04/23 04:26 AST 25 Units/L (15-37) 03/04/23 04:26 ALT 38 Units/L (12-78) 03/04/23 04:26 Alkaline Phosphatase 72 Units/L (46-116) 03/04/23 04:26 Total Protein 5.6 g/dL (6.4-8.2) L 03/04/23 04:26 Albumin 2.2 g/dL (3.4-5.0) L 03/04/23 04:26 Globulin 3.4 g/dL (2.5-4.5) 03/04/23 04:26 Albumin/Globulin Ratio 0.6 Ratio (1.1-2.1) L 03/04/23 04:26 Plan (1) Hypothyroidism: Status: Active (2) Diabetes mellitus type 2: Status: Active (3) Osteoarthritis: Status: Active (4) Essential hypertension: Status: Active (5) Hyperlipidemia: Status: Active (6) Chronic atrial fibrillation: Status: Acute
[2023-03-05] MEDS: SNACK - Diabetic Appropriate PO SCH (20:29)
[2023-03-05] MEDS: PRAVACHOL PO SCH (20:29)
[2023-03-05] MEDS: NYSTATIN POWDER TOP PRN (21:53)
[2023-03-06 02:51] LABS: BILIRUBIN,URINE NEGATIVE (NEGATIVE); GLUCOSE, URINE NEGATIVE (NEGATIVE); KETONES,URINE NEGATIVE (NEGATIVE); NITRITES,URINE NEGATIVE (NEGATIVE); PROTEIN,URINE 2+ (NEGATIVE); UROBILINOGEN,URINE NORMAL (NORMAL)
[2023-03-06 02:58] LABS: BLOOD/HEMOGLOBIN,URINE 2+ (NEGATIVE); LEUKOCYTE ESTERASE ,URINE 2+ (NEGATIVE)
[2023-03-06 03:03] LABS: APPEARANCE,URINE SLIGHTLY HAZY (CLEAR); COLOR,URINE YELLOW (YELLOW)
[2023-03-06 03:06] LABS: BACTERIA,URINE 1+ /HPF (NEGATIVE); HYALINE CASTS, URINE MANY /LPF (NEGATIVE); SQUAMOUS EPITHELIAL CELL,UR FEW /HPF (NEGATIVE)
[2023-03-06] MEDS: SYNTHROID 112 mcg TAB PO SCH (05:45)
[2023-03-06] MEDS: GLUCOTROL PO SCH (06:00)
[2023-03-06 06:04] LABS: BASOPHILS # (AUTO) 0.1 X10^3/uL (0.0-0.1); BASOPHILS % (AUTO) 0.8 % (0.2-1.0); EOSINOPHILS # (AUTO) 0.2 x10^3/uL (0.0-0.2); EOSINOPHILS % (AUTO) 2.6 % (0.9-2.9); HEMOGLOBIN 9.8 g/dL (12.0-16.0); LYMPHOCYTES # (AUTO) 0.7 X10^3/uL (1.3-2.9); LYMPHOCYTES % (AUTO) 10.9 % (21.0-51.0); MEAN CORPUSCULAR HEMOGLOBIN 31.9 pg (27.0-34.0); MEAN CORPUSCULAR HGB CONC 31.5 g/dL (33.0-35.0); MEAN CORPUSCULAR VOLUME 101.4 fL (80.0-100.0); MEAN PLATELET VOLUME 9.7 fL (7.4-11.0); MONOCYTES # (AUTO) 0.5 x10^3/uL (0.3-0.8); MONOCYTES % (AUTO) 7.2 % (0.0-13.0); NEUTROPHILS % (AUTO) 78.5 % (42.0-75.0); PLATELET COUNT 150 X10^3/uL (150.0-450.0); RED BLOOD COUNT 3.05 X10^6/uL (3.5-5.4); RED CELL DISTRIBUTION WIDTH 15.4 % (11.6-16.5); WHITE BLOOD COUNT 6.3 X10^3/uL (3.6-10.0)
[2023-03-06 06:18] LABS: ALANINE AMINOTRANSFERASE 39 Units/L (12-78); ALBUMIN 2.2 g/dL (3.4-5.0); ALKALINE PHOSPHATASE 83 Units/L (46-116); ASPARTATE AMINO TRANSFERASE 24 Units/L (15-37); BLOOD UREA NITROGEN 32 mg/dL (7-18); CALCIUM 9.4 mg/dL (8.5-10.1); CARBON DIOXIDE 42.2 mmol/L (21-32); CHLORIDE 102 mmol/L (98-107); COR CA(FOR HYPOALB) 10.8 mg/dL (8.5-10.1); CREATININE 1.07 mg/dL (0.55-1.02); GLUCOSE 106 mg/dL (65-99); POTASSIUM 4.9 mmol/L (3.5-5.1); SODIUM 142 mmol/L (136-145); TOTAL PROTEIN 5.7 g/dL (6.4-8.2); eGFR NON BLACK RACES 51 (>60)
[2023-03-06] MEDS ORDERED: TOPROL XL PO ONE (08:18)
[2023-03-06] MEDS: ZINC SULFATE PO SCH (08:26)
[2023-03-06] MEDS: COZAAR PO SCH (08:28)
[2023-03-06] MEDS: ELIQUIS PO SCH ×2 (08:29→20:21)
[2023-03-06] MEDS: VITAMIN D3 25 mcg (1,000 UNITS) PO SCH (08:30)
[2023-03-06] MEDS: TOPROL XL PO SCH (08:33)
[2023-03-06] MEDS: ZYLOPRIM PO SCH (08:35)
[2023-03-06] MEDS: CARDIZEM CD 180 MG 24-HR PO SCH (08:36)
[2023-03-06] MEDS: JANUVIA PO SCH (08:36)
[2023-03-06] MEDS ORDERED: ROCEPHIN VIAL 1 GRAM 1 G in NS 100 ML IV 100 ML IV SCH (09:00)
[2023-03-06] MEDS ORDERED: LASIX PO ONE (10:00)
[2023-03-06] MEDS ORDERED: NS 250 ML IV 250 ML IV ONE (10:16)
[2023-03-06] MEDS: ALBUMIN HUMAN 25%- 100 ML 100 ML IV SCH (10:23)
[2023-03-06 17:32] LABS: ABG BASE EXCESS 15.4 mmol/L (-2.0-2.0)
[2023-03-06 17:33] LABS: ABG ALLEN TEST POS; ABG HCO3 46.8 mmol/L (22-26)
[2023-03-06] MEDS ORDERED: PHARMACY CONSULT - VANCOMYCIN XX SCH (18:00)
[2023-03-06] MEDS: VANCOMYCIN IV *PREMIX 1 G/200 ML BAG 1 G/200 ML PIGGYBACK IV SCH (18:04)
--- NOTE | 2023-03-06 19:13 | RAD ---
EXAM:CHEST, 1 VIEWHISTORY:INCREASED SOB;COMPARISON:02/25/2023FINDINGS:The cardiomediastinal silhouette is widened but stable.Similar bilateral pleural-parenchymal opacities. No pneumothorax.No acute osseous abnormality.IMPRESSION:Similar bilateral pleural-parenchymal opacities.THIS IS AN ELECTRONICALLY VERIFIED FINAL [id number]/06/2023 7:09 PM - Electronically signed by Trey Adame MD
--- NOTE | 2023-03-06 19:56 | PCM.PROG ---
Progress Note Progress Note for Day of Date of Exam: 03/06/23 Subjective Subjective: Patient is a 88-year-old female with a history of hypothyroidism, diabetes mellitus, hyperlipidemia, COPD(BL~2L), atrial fibrillation admitted as a swing bed for physical rehabilitation after recovering from urinary tract infection and pneumonia. This morning she appears to be more lethargic. Per nursing, she appears to be more fatigued and weak. No acute events overnight. Labs: WBC 6.3, hemoglobin 9.8, platelets 150, sodium 142, potassium 4.9, creatinine 1.07, glucose 106. UA appears consistent with infection. Urine culture pending. We did start on IV Rocephin. But patient appeared to acutely worsen in respiration as well. ABG did reveal a hypercapnic hypoxia and patient needed to be placed immediately on BiPAP. Change antibiotics immediately to IV vancomycin, and Zosyn for empiric treatment. Chest x-ray ordered for stat however this radiology interpretation is still not available at this time. Patient will continue with physical therapy. Home medications have been resumed. Patient does have some edema of the lower extremities we will give one-time dose of Lasix p.o. 20 mg. Also will start on albumin. Otherwise, continue with current treatment plan. We will continue to closely monitor. Critical care time spent on clinical assessment, reviewing labs and imaging, decision making, and documentation greater than 45 minutes. Past Medical Family Social History Allergies: Allergies iron Allergy (Verified 02/25/23 16:51) Review of Systems ROS: No change since H&P Vital Signs and I&O's Vital Signs: Vital Signs Temperature 99.0 F Pulse Rate [Left Brachial] 62 Respiratory Rate 29 Blood Pressure [Left Arm] 117/75 O2 Sat by Pulse Oximetry 94 Intake and Output: Intake & Output 03/03/23 03/04/23 03/05/23 03/06/23 23:59 23:59 23:59 23:59 Intake Total 1606 / 1606 760 / 760 410 / 410 502 / 502 Output Total 100 / 100 Balance 1606 / 1606 760 / 760 410 / 410 402 / 402 Physical Exam Oriented: Normal Eyes: Normal Ear: Normal Nose: Normal Throat: Normal Respiratory: Normal Cardiovascular: Normal : Normal Auscultation: Bowel Sounds: Normal Tenderness: Normal Skin: Normal Musculoskeletal: Normal Psychiatric: Normal Mood Description: Calm and Appropriate Affect: Normal Speech Pattern: Clear and Appropriate Laboratory and Diagnostics 03/06/23 05:10 03/06/23 05:10 Labs: Laboratory WBC 6.3 X10^3/uL (3.6-10.0) 03/06/23 05:10 RBC 3.05 X10^6/uL (3.5-5.4) L 03/06/23 05:10 Hgb 9.8 g/dL (12.0-16.0) L 03/06/23 05:10 Hct 31.0 % (36.0-47.0) L 03/06/23 05:10 MCV 101.4 fL (80.0-100.0) H 03/06/23 05:10 MCH 31.9 pg (27.0-34.0) 03/06/23 05:10 MCHC 31.5 g/dL (33.0-35.0) L 03/06/23 05:10 RDW 15.4 % (11.6-16.5) 03/06/23 05:10 Plt Count 150 X10^3/uL (150.0-450.0) 03/06/23 05:10 MPV 9.7 fL (7.4-11.0) 03/06/23 05:10 Neut % (Auto) 78.5 % (42.0-75.0) H 03/06/23 05:10 Lymph % (Auto) 10.9 % (21.0-51.0) L 03/06/23 05:10 [place] % (Auto) 7.2 % (0.0-13.0) 03/06/23 05:10 Eos % (Auto) 2.6 % (0.9-2.9) 03/06/23 05:10 Baso % (Auto) 0.8 % (0.2-1.0) 03/06/23 05:10 Neut # (Auto) 5.0 x10^3/uL (2.2-4.8) H 03/06/23 05:10 Lymph # (Auto) 0.7 X10^3/uL (1.3-2.9) L 03/06/23 05:10 [place] # (Auto) 0.5 x10^3/uL (0.3-0.8) 03/06/23 05:10 Eos # (Auto) 0.2 x10^3/uL (0.0-0.2) 03/06/23 05:10 Baso # (Auto) 0.1 X10^3/uL (0.0-0.1) 03/06/23 05:10 Absolute Nucleated RBC 0.1 /100WBC 03/06/23 05:10 Sample Site Rr 03/06/23 17:26 ABG pH 7.270 (7.35-7.45) L 03/06/23 17:26 ABG pCO2 102.0 mmHg (35.0-45.0) H* 03/06/23 17:26 ABG pO2 73.0 mmHg (80.0-100.0) L 03/06/23 17:26 ABG HCO3 46.8 mmol/L (22-26) H* 03/06/23 17:26 ABG O2 Saturation 92.0 % (90-100) 03/06/23 17:26 ABG Base Excess 15.4 mmol/L (-2.0-2.0) H 03/06/23 17:26 Pal Test Pos 03/06/23 17:26 A-a Gradient 28.0 mmHg 03/06/23 17:26 FiO2 32.0 03/06/23 17:26 Blood Gas Comments Pt mariam well cdn 03/06/23 17:26 Sodium 142 mmol/L (136-145) 03/06/23 05:10 Corrected Sodium TNP 03/06/23 05:10 Potassium 4.9 mmol/L (3.5-5.1) 03/06/23 05:10 Chloride 102 mmol/L (98-107) 03/06/23 05:10 Carbon Dioxide 42.2 mmol/L (21-32) H 03/06/23 05:10 BUN 32 mg/dL (7-18) H 03/06/23 05:10 Creatinine 1.07 mg/dL (0.55-1.02) H 03/06/23 05:10 Est GFR (MDRD) Af Amer > 60 (>60) 03/06/23 05:10 Est GFR (MDRD) Non-Af 51 (>60) L 03/06/23 05:10 Glucose 106 mg/dL (65-99) H 03/06/23 05:10 POC Glucose (mg/dL) 118 mg/dL (65-99) H 03/06/23 16:49 Calcium 9.4 mg/dL (8.5-10.1) 03/06/23 05:10 Corrected Calcium 10.8 mg/dL (8.5-10.1) H 03/06/23 05:10 Magnesium 2.3 mg/dL (2.0-2.9) 02/26/23 05:47 Total Bilirubin 0.30 mg/dL (0.2-1.0) 03/06/23 05:10 AST 24 Units/L (15-37) 03/06/23 05:10 ALT 39 Units/L (12-78) 03/06/23 05:10 Alkaline Phosphatase 83 Units/L (46-116) 03/06/23 05:10 Total Protein 5.7 g/dL (6.4-8.2) L 03/06/23 05:10 Albumin 2.2 g/dL (3.4-5.0) L 03/06/23 05:10 Globulin 3.5 g/dL (2.5-4.5) 03/06/23 05:10 Albumin/Globulin Ratio 0.6 Ratio (1.1-2.1) L 03/06/23 05:10 Specimen Type Catherized urine 03/06/23 02:35 Urine Color Yellow (YELLOW) 03/06/23 02:35 Urine Appearance Slightly hazy (CLEAR) 03/06/23 02:35 Urine pH 5.0 (5.0 - 8.0) 03/06/23 02:35 Ur Specific [place] 1.030 (1.000-1.030) 03/06/23 02:35 Urine Protein 2+ (NEGATIVE) 03/06/23 02:35 Urine Glucose (UA) Negative (NEGATIVE) 03/06/23 02:35 Urine Ketones Negative (NEGATIVE) 03/06/23 02:35 Urine Blood 2+ (NEGATIVE) 03/06/23 02:35 Urine Nitrite Negative (NEGATIVE) 03/06/23 02:35 Urine Bilirubin Negative (NEGATIVE) 03/06/23 02:35 Urine Urobilinogen Normal (NORMAL) 03/06/23 02:35 Ur Leukocyte Esterase 2+ (NEGATIVE) 03/06/23 02:35 Urine RBC 5-10 /HPF (0-3) A 03/06/23 02:35 Urine WBC 10-20 /HPF (0-5) A 03/06/23 02:35 Ur Squamous Epith Cells Few /HPF (NEGATIVE) 03/06/23 02:35 Amorphous Sediment 1+ /HPF (NEGATIVE) 03/06/23 02:35 Urine Bacteria 1+ /HPF (NEGATIVE) 03/06/23 02:35 Hyaline Casts Many /LPF (NEGATIVE) 03/06/23 02:35 Urine Mucus Few /HPF (NEGATIVE) 03/06/23 02:35 Ur Culture Indicated? Yes/culture set up 03/06/23 02:35 Plan (1) Hypothyroidism: Status: Active (2) Diabetes mellitus type 2: Status: Active (3) Osteoarthritis: Status: Active (4) Essential hypertension: Status: Active (5) Hyperlipidemia: Status: Active (6) Chronic atrial fibrillation: Status: Acute
[2023-03-06] MEDS: PRAVACHOL PO SCH (20:21)
[2023-03-06] MEDS: ZOSYN VIAL 3.375 GRAMS 3.375 G in NS 100 ML IV 100 ML IV SCH (21:05)
[2023-03-06] MEDS: SNACK - Diabetic Appropriate PO SCH (21:05)
[2023-03-06 22:15] LABS: ABG BASE EXCESS 15.3 mmol/L (-2.0-2.0)
[2023-03-06 22:17] LABS: ABG ALLEN TEST POS; ABG HCO3 43.6 mmol/L (22-26)
[2023-03-07] MEDS: ZOSYN VIAL 3.375 GRAMS 3.375 G in NS 100 ML IV 100 ML IV SCH ×3 (04:20→20:35)
[2023-03-07] MEDS: SYNTHROID 112 mcg TAB PO SCH (05:34)
[2023-03-07 06:01] LABS: ABG BASE EXCESS 16.3 mmol/L (-2.0-2.0)
[2023-03-07 06:02] LABS: ABG ALLEN TEST POS; ABG HCO3 43.8 mmol/L (22-26)
[2023-03-07] MEDS: GLUCOTROL PO SCH (06:07)
[2023-03-07] MEDS ORDERED: D50W ABBOJECT SYR IV ONE (06:18)
[2023-03-07] MEDS ORDERED: TOPROL XL PO ONE (08:12)
[2023-03-07] MEDS: ZYLOPRIM PO SCH (08:42)
[2023-03-07] MEDS: ELIQUIS PO SCH ×2 (08:42→20:31)
[2023-03-07] MEDS: ALBUMIN HUMAN 25%- 100 ML 100 ML IV SCH (08:42)
[2023-03-07] MEDS: COZAAR PO SCH (08:42)
[2023-03-07] MEDS: CARDIZEM CD 180 MG 24-HR PO SCH (08:43)
[2023-03-07] MEDS: JANUVIA PO SCH (08:44)
[2023-03-07] MEDS: VITAMIN D3 25 mcg (1,000 UNITS) PO SCH (08:44)
[2023-03-07] MEDS: ULTRAM PO PRN ×2 (08:45→20:33)
[2023-03-07] MEDS: ZINC SULFATE PO SCH (08:46)
[2023-03-07] MEDS: TOPROL XL PO SCH (08:46)
[2023-03-07 10:39] LABS: BASOPHILS # (AUTO) 0.1 X10^3/uL (0.0-0.1); BASOPHILS % (AUTO) 1.3 % (0.2-1.0); EOSINOPHILS # (AUTO) 0.2 x10^3/uL (0.0-0.2); EOSINOPHILS % (AUTO) 2.8 % (0.9-2.9); HEMATOCRIT 28.2 % (36.0-47.0); HEMOGLOBIN 9.1 g/dL (12.0-16.0); LYMPHOCYTES # (AUTO) 0.5 X10^3/uL (1.3-2.9); MEAN CORPUSCULAR HEMOGLOBIN 31.9 pg (27.0-34.0); MEAN CORPUSCULAR HGB CONC 32.2 g/dL (33.0-35.0); MEAN CORPUSCULAR VOLUME 99.1 fL (80.0-100.0); MEAN PLATELET VOLUME 9.2 fL (7.4-11.0); MONOCYTES # (AUTO) 0.6 x10^3/uL (0.3-0.8); MONOCYTES % (AUTO) 8.4 % (0.0-13.0); NEUTROPHILS # (AUTO) 5.3 x10^3/uL (2.2-4.8); NEUTROPHILS % (AUTO) 79.5 % (42.0-75.0); PLATELET COUNT 125 X10^3/uL (150.0-450.0); RED BLOOD COUNT 2.84 X10^6/uL (3.5-5.4); RED CELL DISTRIBUTION WIDTH 15.2 % (11.6-16.5); WHITE BLOOD COUNT 6.7 X10^3/uL (3.6-10.0)
[2023-03-07 10:51] LABS: ALANINE AMINOTRANSFERASE 56 Units/L (12-78); ALBUMIN 2.7 g/dL (3.4-5.0); ALKALINE PHOSPHATASE 102 Units/L (46-116); ASPARTATE AMINO TRANSFERASE 37 Units/L (15-37); BLOOD UREA NITROGEN 30 mg/dL (7-18); CALCIUM 8.9 mg/dL (8.5-10.1); CHLORIDE 102 mmol/L (98-107); COR CA(FOR HYPOALB) 9.9 mg/dL (8.5-10.1); CREATININE 1.09 mg/dL (0.55-1.02); GLUCOSE 102 mg/dL (65-99); POTASSIUM 4.6 mmol/L (3.5-5.1); SODIUM 141 mmol/L (136-145); TOTAL PROTEIN 5.6 g/dL (6.4-8.2); eGFR NON BLACK RACES 50 (>60)
[2023-03-07 11:43] LABS: ABG BASE EXCESS 15.8 mmol/L (-2.0-2.0)
[2023-03-07 11:45] LABS: ABG ALLEN TEST POS; ABG HCO3 44.4 mmol/L (22-26)
[2023-03-07] MEDS: NYSTATIN POWDER TOP PRN (16:28)
[2023-03-07 18:12] LABS: ABG BASE EXCESS 16.4 mmol/L (-2.0-2.0)
[2023-03-07 18:13] LABS: ABG HCO3 44.6 mmol/L (22-26)
[2023-03-07 18:14] LABS: ABG ALLEN TEST POS
[2023-03-07] MEDS: PRAVACHOL PO SCH (20:31)
[2023-03-07] MEDS: SNACK - Diabetic Appropriate PO SCH (20:35)
[2023-03-08] MEDS: ULTRAM PO PRN (01:50)
[2023-03-08] MEDS: SYNTHROID 112 mcg TAB PO SCH (05:32)
[2023-03-08] MEDS: VANCOMYCIN IV *PREMIX 1 G/200 ML BAG 1 G/200 ML PIGGYBACK IV SCH (05:32)
[2023-03-08] MEDS: ZOSYN VIAL 3.375 GRAMS 3.375 G in NS 100 ML IV 100 ML IV SCH ×3 (06:09→20:21)
[2023-03-08] MEDS: GLUCOTROL PO SCH (06:09)
[2023-03-08 06:54] LABS: BASOPHILS # (AUTO) 0.1 X10^3/uL (0.0-0.1); BASOPHILS % (AUTO) 1.4 % (0.2-1.0); EOSINOPHILS # (AUTO) 0.2 x10^3/uL (0.0-0.2); EOSINOPHILS % (AUTO) 2.1 % (0.9-2.9); HEMATOCRIT 30.5 % (36.0-47.0); HEMOGLOBIN 9.9 g/dL (12.0-16.0); LYMPHOCYTES # (AUTO) 0.5 X10^3/uL (1.3-2.9); LYMPHOCYTES % (AUTO) 5.5 % (21.0-51.0); MEAN CORPUSCULAR HEMOGLOBIN 32.3 pg (27.0-34.0); MEAN CORPUSCULAR HGB CONC 32.6 g/dL (33.0-35.0); MEAN CORPUSCULAR VOLUME 98.9 fL (80.0-100.0); MEAN PLATELET VOLUME 10.1 fL (7.4-11.0); MONOCYTES # (AUTO) 0.6 x10^3/uL (0.3-0.8); MONOCYTES % (AUTO) 6.1 % (0.0-13.0); NEUTROPHILS % (AUTO) 84.9 % (42.0-75.0); PLATELET COUNT 134 X10^3/uL (150.0-450.0); RED BLOOD COUNT 3.08 X10^6/uL (3.5-5.4); RED CELL DISTRIBUTION WIDTH 15.5 % (11.6-16.5); WHITE BLOOD COUNT 9.5 X10^3/uL (3.6-10.0)
[2023-03-08 07:16] LABS: ALANINE AMINOTRANSFERASE 46 Units/L (12-78); ALBUMIN 2.6 g/dL (3.4-5.0); ALKALINE PHOSPHATASE 100 Units/L (46-116); ASPARTATE AMINO TRANSFERASE 30 Units/L (15-37); BLOOD UREA NITROGEN 28 mg/dL (7-18); CALCIUM 9.3 mg/dL (8.5-10.1); CARBON DIOXIDE 38.2 mmol/L (21-32); CHLORIDE 101 mmol/L (98-107); COR CA(FOR HYPOALB) 10.4 mg/dL (8.5-10.1); COR NA(FOR HYPERGLY) 141 mmol/L (136-145); CREATININE 1.05 mg/dL (0.55-1.02); GLUCOSE 170 mg/dL (65-99); POTASSIUM 4.7 mmol/L (3.5-5.1); SODIUM 139 mmol/L (136-145); TOTAL PROTEIN 5.8 g/dL (6.4-8.2); eGFR NON BLACK RACES 53 (>60)
[2023-03-08] MEDS ORDERED: TOPROL XL PO ONE (08:04)
--- NOTE | 2023-03-08 08:56 | PCM.PROG ---
Progress Note Progress Note for Day of Date of Exam: 03/07/23 Subjective Subjective: Patient is a 88-year-old female with a history of hypothyroidism, diabetes mellitus, hyperlipidemia, COPD(BL~2L), atrial fibrillation that was admitted as a swing bed for physical rehabilitation after recovering from urinary tract infection and pneumonia. This morning patient continues to require BiPAP support. No acute events overnight. Labs: WBC 6.7, hemoglobin 9.1, platelets 125, sodium 141, potassium 4.6, creatinine 1.09, glucose 102. Urine culture pending. Antibiotics changed to Vancomycin and Zosyn. ABG this morning: pH 7.43, pCO2 66, pO2 63, HCO3 43, O2sat 92% on FiO2 40%. Antibiotics: IV vancomycin, and Zosyn for empiric treatment. Chest x-ray revealed: Similar bilateral pleural-parenchymal opacities. Home medications have been resumed. pCO2 is improving. Repeat ABG in the afternoon. Otherwise, continue with current treatment plan. We will continue to closely monitor. Critical care time spent on clinical assessment, reviewing labs and imaging, decision making, and documentation greater than 45 minutes. Past Medical Family Social History Allergies: Allergies iron Allergy (Verified 02/25/23 16:51) Review of Systems ROS: No change since H&P Vital Signs and I&O's Vital Signs: Vital Signs Pulse Rate 82 Respiratory Rate 23 Respiratory Rate 25 O2 Sat by Pulse Oximetry 92 Intake and Output: Intake & Output 03/05/23 03/06/23 03/07/23 03/08/23 23:59 23:59 23:59 23:59 Intake Total 410 / 410 857 / 857 575 / 575 190 / 190 Output Total 100 / 100 Balance 410 / 410 757 / 757 575 / 575 190 / 190 Physical Exam Oriented: Other (Arousable) Eyes: Normal Ear: Normal Nose: Normal Throat: Normal Respiratory: Normal Cardiovascular: Normal : Normal Auscultation: Bowel Sounds: Normal Tenderness: Normal Skin: Normal Musculoskeletal: Normal Psychiatric: Normal Mood Description: Calm and Appropriate Affect: Normal Speech Pattern: Clear and Appropriate Laboratory and Diagnostics 03/08/23 05:47 03/08/23 05:47 Labs: 03/06/23 02:35 Urine,Clean Catch Urine Culture - Preliminary Laboratory WBC 9.5 X10^3/uL (3.6-10.0) 03/08/23 05:47 RBC 3.08 X10^6/uL (3.5-5.4) L 03/08/23 05:47 Hgb 9.9 g/dL (12.0-16.0) L 03/08/23 05:47 Hct 30.5 % (36.0-47.0) L 03/08/23 05:47 MCV 98.9 fL (80.0-100.0) 03/08/23 05:47 MCH 32.3 pg (27.0-34.0) 03/08/23 05:47 MCHC 32.6 g/dL (33.0-35.0) L 03/08/23 05:47 RDW 15.5 % (11.6-16.5) 03/08/23 05:47 Plt Count 134 X10^3/uL (150.0-450.0) L 03/08/23 05:47 MPV 10.1 fL (7.4-11.0) 03/08/23 05:47 Neut % (Auto) 84.9 % (42.0-75.0) H 03/08/23 05:47 Lymph % (Auto) 5.5 % (21.0-51.0) L 03/08/23 05:47 [place] % (Auto) 6.1 % (0.0-13.0) 03/08/23 05:47 Eos % (Auto) 2.1 % (0.9-2.9) 03/08/23 05:47 Baso % (Auto) 1.4 % (0.2-1.0) H 03/08/23 05:47 Neut # (Auto) 8.0 x10^3/uL (2.2-4.8) H 03/08/23 05:47 Lymph # (Auto) 0.5 X10^3/uL (1.3-2.9) L 03/08/23 05:47 [place] # (Auto) 0.6 x10^3/uL (0.3-0.8) 03/08/23 05:47 Eos # (Auto) 0.2 x10^3/uL (0.0-0.2) 03/08/23 05:47 Baso # (Auto) 0.1 X10^3/uL (0.0-0.1) 03/08/23 05:47 Absolute Nucleated RBC 0.0 /100WBC 03/08/23 05:47 Sample Site Rrad 03/07/23 18:08 ABG pH 7.400 (7.35-7.45) 03/07/23 18:08 ABG pCO2 72.0 mmHg (35.0-45.0) H* 03/07/23 18:08 ABG pO2 67.0 mmHg (80.0-100.0) L 03/07/23 18:08 ABG HCO3 44.6 mmol/L (22-26) H* 03/07/23 18:08 ABG O2 Saturation 93.0 % (90-100) 03/07/23 18:08 ABG Base Excess 16.4 mmol/L (-2.0-2.0) H 03/07/23 18:08 Pal Test Pos 03/07/23 18:08 A-a Gradient 200.0 mmHg 03/07/23 18:08 FiO2 50.0 03/07/23 18:08 Blood Gas Comments Pt mariam well. kg 03/07/23 18:08 Sodium 139 mmol/L (136-145) 03/08/23 05:47 Corrected Sodium 141 mmol/L (136-145) 03/08/23 05:47 Potassium 4.7 mmol/L (3.5-5.1) 03/08/23 05:47 Chloride 101 mmol/L (98-107) 03/08/23 05:47 Carbon Dioxide 38.2 mmol/L (21-32) H 03/08/23 05:47 BUN 28 mg/dL (7-18) H 03/08/23 05:47 Creatinine 1.05 mg/dL (0.55-1.02) H 03/08/23 05:47 Est GFR (MDRD) Af Amer > 60 (>60) 03/08/23 05:47 Est GFR (MDRD) Non-Af 53 (>60) L 03/08/23 05:47 Glucose 170 mg/dL (65-99) H 03/08/23 05:47 POC Glucose (mg/dL) 155 mg/dL (65-99) H 03/08/23 05:19 Calcium 9.3 mg/dL (8.5-10.1) 03/08/23 05:47 Corrected Calcium 10.4 mg/dL (8.5-10.1) H 03/08/23 05:47 Magnesium 2.3 mg/dL (2.0-2.9) 02/26/23 05:47 Total Bilirubin 0.50 mg/dL (0.2-1.0) 03/08/23 05:47 AST 30 Units/L (15-37) 03/08/23 05:47 ALT 46 Units/L (12-78) 03/08/23 05:47 Alkaline Phosphatase 100 Units/L (46-116) 03/08/23 05:47 Total Protein 5.8 g/dL (6.4-8.2) L 03/08/23 05:47 Albumin 2.6 g/dL (3.4-5.0) L 03/08/23 05:47 Globulin 3.2 g/dL (2.5-4.5) 03/08/23 05:47 Albumin/Globulin Ratio 0.8 Ratio (1.1-2.1) L 03/08/23 05:47 Specimen Type Catherized urine 03/06/23 02:35 Urine Color Yellow (YELLOW) 03/06/23 02:35 Urine Appearance Slightly hazy (CLEAR) 03/06/23 02:35 Urine pH 5.0 (5.0 - 8.0) 03/06/23 02:35 Ur Specific [place] 1.030 (1.000-1.030) 03/06/23 02:35 Urine Protein 2+ (NEGATIVE) 03/06/23 02:35 Urine Glucose (UA) Negative (NEGATIVE) 03/06/23 02:35 Urine Ketones Negative (NEGATIVE) 03/06/23 02:35 Urine Blood 2+ (NEGATIVE) 03/06/23 02:35 Urine Nitrite Negative (NEGATIVE) 03/06/23 02:35 Urine Bilirubin Negative (NEGATIVE) 03/06/23 02:35 Urine Urobilinogen Normal (NORMAL) 03/06/23 02:35 Ur Leukocyte Esterase 2+ (NEGATIVE) 03/06/23 02:35 Urine RBC 5-10 /HPF (0-3) A 03/06/23 02:35 Urine WBC 10-20 /HPF (0-5) A 03/06/23 02:35 Ur Squamous Epith Cells Few /HPF (NEGATIVE) 03/06/23 02:35 Amorphous Sediment 1+ /HPF (NEGATIVE) 03/06/23 02:35 Urine Bacteria 1+ /HPF (NEGATIVE) 03/06/23 02:35 Hyaline Casts Many /LPF (NEGATIVE) 03/06/23 02:35 Urine Mucus Few /HPF (NEGATIVE) 03/06/23 02:35 Ur Culture Indicated? Yes/culture set up 03/06/23 02:35 Plan (1) Hypercapnic respiratory failure: Status: Acute (2) Hypothyroidism: Status: Active (3) Diabetes mellitus type 2: Status: Active (4) Osteoarthritis: Status: Active (5) Essential hypertension: Status: Active (6) Hyperlipidemia: Status: Active (7) Chronic atrial fibrillation: Status: Acute
[2023-03-08] MEDS: VITAMIN D3 25 mcg (1,000 UNITS) PO SCH (08:58)
[2023-03-08] MEDS: ZYLOPRIM PO SCH (08:58)
[2023-03-08] MEDS: CARDIZEM CD 180 MG 24-HR PO SCH (08:58)
[2023-03-08] MEDS: ZINC SULFATE PO SCH (08:58)
[2023-03-08] MEDS: ELIQUIS PO SCH ×2 (08:58→20:21)
[2023-03-08] MEDS: TOPROL XL PO SCH (08:58)
[2023-03-08] MEDS: COZAAR PO SCH (08:58)
[2023-03-08] MEDS: ALBUMIN HUMAN 25%- 100 ML 100 ML IV SCH (08:59)
[2023-03-08] MEDS: JANUVIA PO SCH (08:59)
[2023-03-08 11:25] LABS: ABG BASE EXCESS 16.1 mmol/L (-2.0-2.0)
[2023-03-08 11:26] LABS: ABG ALLEN TEST POS; ABG HCO3 45.1 mmol/L (22-26)
--- NOTE | 2023-03-08 12:34 | PCM.PROG ---
Progress Note Progress Note for Day of Date of Exam: 03/08/23 Subjective Subjective: Patient is a 88-year-old female with a history of hypothyroidism, diabetes mellitus, hyperlipidemia, COPD(BL~2L), atrial fibrillation that was admitted as a swing bed for physical rehabilitation after recovering from urinary tract infection and pneumonia. This morning she is currently on BiPAP support. She appears to be a lot more alert this morning and following commands. No acute events overnight. Labs: WBC 9.5, hemoglobin 9.9, platelets 134, sodium 139, potassium 4.7, creatinine 1.05, glucose 170. Urine culture no growth. ABG this morning: pH 7.37, pCO2 78, pO2 71, HCO3 45, O2sat 94% on FiO2 45%. Antibiotics: IV vancomycin, and Zosyn for empiric treatment. Home medications have been resumed. pCO2 possibly at baseline. Since patient is more alert, will remove BiPAP continue with nasal cannula and have BiPAP used at night. Otherwise, continue with current treatment plan. We will continue to closely monitor. Time spent on clinical assessment, reviewing labs and imaging, decision making, and documentation greater than 45 minutes. Past Medical Family Social History Allergies: Allergies iron Allergy (Verified 02/25/23 16:51) Review of Systems ROS: No change since H&P Vital Signs and I&O's Vital Signs: Vital Signs Temperature 99.0 F Pulse Rate [Left Brachial] 70 Pulse Rate 82 Respiratory Rate 18 Blood Pressure [Left Arm] 139/60 O2 Sat by Pulse Oximetry 95 O2 Sat by Pulse Oximetry 92 Intake and Output: Intake & Output 03/05/23 03/06/23 03/07/23 03/08/23 23:59 23:59 23:59 23:59 Intake Total 410 / 410 857 / 857 575 / 575 190 / 190 Output Total 100 / 100 Balance 410 / 410 757 / 757 575 / 575 190 / 190 Physical Exam Oriented: Other (Arousable) Eyes: Normal Ear: Normal Nose: Normal Throat: Normal Respiratory: Diminished Cardiovascular: Normal : Normal Auscultation: Bowel Sounds: Normal Tenderness: Normal Skin: Normal Musculoskeletal: Normal Psychiatric: Normal Mood Description: Calm and Appropriate Affect: Normal Speech Pattern: Clear and Appropriate Laboratory and Diagnostics 03/08/23 05:47 03/08/23 05:47 Labs: 03/06/23 17:23 Blood Blood Culture - Preliminary 03/06/23 17:10 Blood Blood Culture - Preliminary 03/06/23 02:35 Urine,Clean Catch Urine Culture - Final Laboratory WBC 9.5 X10^3/uL (3.6-10.0) 03/08/23 05:47 RBC 3.08 X10^6/uL (3.5-5.4) L 03/08/23 05:47 Hgb 9.9 g/dL (12.0-16.0) L 03/08/23 05:47 Hct 30.5 % (36.0-47.0) L 03/08/23 05:47 MCV 98.9 fL (80.0-100.0) 03/08/23 05:47 MCH 32.3 pg (27.0-34.0) 03/08/23 05:47 MCHC 32.6 g/dL (33.0-35.0) L 03/08/23 05:47 RDW 15.5 % (11.6-16.5) 03/08/23 05:47 Plt Count 134 X10^3/uL (150.0-450.0) L 03/08/23 05:47 MPV 10.1 fL (7.4-11.0) 03/08/23 05:47 Neut % (Auto) 84.9 % (42.0-75.0) H 03/08/23 05:47 Lymph % (Auto) 5.5 % (21.0-51.0) L 03/08/23 05:47 [place] % (Auto) 6.1 % (0.0-13.0) 03/08/23 05:47 Eos % (Auto) 2.1 % (0.9-2.9) 03/08/23 05:47 Baso % (Auto) 1.4 % (0.2-1.0) H 03/08/23 05:47 Neut # (Auto) 8.0 x10^3/uL (2.2-4.8) H 03/08/23 05:47 Lymph # (Auto) 0.5 X10^3/uL (1.3-2.9) L 03/08/23 05:47 [place] # (Auto) 0.6 x10^3/uL (0.3-0.8) 03/08/23 05:47 Eos # (Auto) 0.2 x10^3/uL (0.0-0.2) 03/08/23 05:47 Baso # (Auto) 0.1 X10^3/uL (0.0-0.1) 03/08/23 05:47 Absolute Nucleated RBC 0.0 /100WBC 03/08/23 05:47 Sample Site Lrad 03/08/23 11:20 ABG pH 7.370 (7.35-7.45) 03/08/23 11:20 ABG pCO2 78.0 mmHg (35.0-45.0) H* 03/08/23 11:20 ABG pO2 71.0 mmHg (80.0-100.0) L 03/08/23 11:20 ABG HCO3 45.1 mmol/L (22-26) H* 03/08/23 11:20 ABG O2 Saturation 94.0 % (90-100) 03/08/23 11:20 ABG Base Excess 16.1 mmol/L (-2.0-2.0) H 03/08/23 11:20 Pal Test Pos 03/08/23 11:20 A-a Gradient 152.0 mmHg 03/08/23 11:20 FiO2 45.0 03/08/23 11:20 Blood Gas Comments Pt mariam well. eb/kg 03/08/23 11:20 Sodium 139 mmol/L (136-145) 03/08/23 05:47 Corrected Sodium 141 mmol/L (136-145) 03/08/23 05:47 Potassium 4.7 mmol/L (3.5-5.1) 03/08/23 05:47 Chloride 101 mmol/L (98-107) 03/08/23 05:47 Carbon Dioxide 38.2 mmol/L (21-32) H 03/08/23 05:47 BUN 28 mg/dL (7-18) H 03/08/23 05:47 Creatinine 1.05 mg/dL (0.55-1.02) H 03/08/23 05:47 Est GFR (MDRD) Af Amer > 60 (>60) 03/08/23 05:47 Est GFR (MDRD) Non-Af 53 (>60) L 03/08/23 05:47 Glucose 170 mg/dL (65-99) H 03/08/23 05:47 POC Glucose (mg/dL) 131 mg/dL (65-99) H 03/08/23 11:23 Calcium 9.3 mg/dL (8.5-10.1) 03/08/23 05:47 Corrected Calcium 10.4 mg/dL (8.5-10.1) H 03/08/23 05:47 Magnesium 2.3 mg/dL (2.0-2.9) 02/26/23 05:47 Total Bilirubin 0.50 mg/dL (0.2-1.0) 03/08/23 05:47 AST 30 Units/L (15-37) 03/08/23 05:47 ALT 46 Units/L (12-78) 03/08/23 05:47 Alkaline Phosphatase 100 Units/L (46-116) 03/08/23 05:47 Total Protein 5.8 g/dL (6.4-8.2) L 03/08/23 05:47 Albumin 2.6 g/dL (3.4-5.0) L 03/08/23 05:47 Globulin 3.2 g/dL (2.5-4.5) 03/08/23 05:47 Albumin/Globulin Ratio 0.8 Ratio (1.1-2.1) L 03/08/23 05:47 Specimen Type Catherized urine 03/06/23 02:35 Urine Color Yellow (YELLOW) 03/06/23 02:35 Urine Appearance Slightly hazy (CLEAR) 03/06/23 02:35 Urine pH 5.0 (5.0 - 8.0) 03/06/23 02:35 Ur Specific [place] 1.030 (1.000-1.030) 03/06/23 02:35 Urine Protein 2+ (NEGATIVE) 03/06/23 02:35 Urine Glucose (UA) Negative (NEGATIVE) 03/06/23 02:35 Urine Ketones Negative (NEGATIVE) 03/06/23 02:35 Urine Blood 2+ (NEGATIVE) 03/06/23 02:35 Urine Nitrite Negative (NEGATIVE) 03/06/23 02:35 Urine Bilirubin Negative (NEGATIVE) 03/06/23 02:35 Urine Urobilinogen Normal (NORMAL) 03/06/23 02:35 Ur Leukocyte Esterase 2+ (NEGATIVE) 03/06/23 02:35 Urine RBC 5-10 /HPF (0-3) A 03/06/23 02:35 Urine WBC 10-20 /HPF (0-5) A 03/06/23 02:35 Ur Squamous Epith Cells Few /HPF (NEGATIVE) 03/06/23 02:35 Amorphous Sediment 1+ /HPF (NEGATIVE) 03/06/23 02:35 Urine Bacteria 1+ /HPF (NEGATIVE) 03/06/23 02:35 Hyaline Casts Many /LPF (NEGATIVE) 03/06/23 02:35 Urine Mucus Few /HPF (NEGATIVE) 03/06/23 02:35 Ur Culture Indicated? Yes/culture set up 03/06/23 02:35 Plan (1) Hypercapnic respiratory failure: Status: Acute (2) Hypothyroidism: Status: Active (3) Diabetes mellitus type 2: Status: Active (4) Osteoarthritis: Status: Active (5) Essential hypertension: Status: Active (6) Hyperlipidemia: Status: Active (7) Chronic atrial fibrillation: Status: Acute
[2023-03-08] MEDS: PRAVACHOL PO SCH (20:21)
[2023-03-08] MEDS: SNACK - Diabetic Appropriate PO SCH (20:51)
[2023-03-09 05:40] LABS: ABG BASE EXCESS 16.4 mmol/L (-2.0-2.0)
[2023-03-09] MEDS: SYNTHROID 112 mcg TAB PO SCH (05:40)
[2023-03-09] MEDS: ZOSYN VIAL 3.375 GRAMS 3.375 G in NS 100 ML IV 100 ML IV SCH ×2 (05:40→13:02)
[2023-03-09 05:41] LABS: ABG ALLEN TEST POS; ABG HCO3 44.4 mmol/L (22-26)
[2023-03-09 06:16] LABS: BASOPHILS # (AUTO) 0.1 X10^3/uL (0.0-0.1); BASOPHILS % (AUTO) 1.4 % (0.2-1.0); EOSINOPHILS # (AUTO) 0.2 x10^3/uL (0.0-0.2); EOSINOPHILS % (AUTO) 2.1 % (0.9-2.9); HEMATOCRIT 29.3 % (36.0-47.0); HEMOGLOBIN 9.4 g/dL (12.0-16.0); LYMPHOCYTES # (AUTO) 0.4 X10^3/uL (1.3-2.9); LYMPHOCYTES % (AUTO) 5.9 % (21.0-51.0); MEAN CORPUSCULAR HGB CONC 32.2 g/dL (33.0-35.0); MEAN CORPUSCULAR VOLUME 99.5 fL (80.0-100.0); MEAN PLATELET VOLUME 10.1 fL (7.4-11.0); MONOCYTES # (AUTO) 0.6 x10^3/uL (0.3-0.8); MONOCYTES % (AUTO) 9.1 % (0.0-13.0); NEUTROPHILS # (AUTO) 5.8 x10^3/uL (2.2-4.8); NEUTROPHILS % (AUTO) 81.5 % (42.0-75.0); PLATELET COUNT 119 X10^3/uL (150.0-450.0); RED BLOOD COUNT 2.95 X10^6/uL (3.5-5.4); RED CELL DISTRIBUTION WIDTH 15.7 % (11.6-16.5); WHITE BLOOD COUNT 7.2 X10^3/uL (3.6-10.0)
[2023-03-09] MEDS: GLUCOTROL PO SCH (06:32)
[2023-03-09 06:34] LABS: ALANINE AMINOTRANSFERASE 51 Units/L (12-78); ALBUMIN 2.6 g/dL (3.4-5.0); ALKALINE PHOSPHATASE 144 Units/L (46-116); ASPARTATE AMINO TRANSFERASE 32 Units/L (15-37); BLOOD UREA NITROGEN 25 mg/dL (7-18); CALCIUM 9.3 mg/dL (8.5-10.1); CARBON DIOXIDE 39.8 mmol/L (21-32); CHLORIDE 103 mmol/L (98-107); COR CA(FOR HYPOALB) 10.4 mg/dL (8.5-10.1); COR NA(FOR HYPERGLY) 143 mmol/L (136-145); CREATININE 1.03 mg/dL (0.55-1.02); GLUCOSE 111 mg/dL (65-99); POTASSIUM 4.2 mmol/L (3.5-5.1); SODIUM 143 mmol/L (136-145); TOTAL PROTEIN 5.5 g/dL (6.4-8.2); eGFR NON BLACK RACES 54 (>60)
[2023-03-09] MEDS ORDERED: VANCOMYCIN IV *PREMIX 1 G/200 ML BAG 1 G/200 ML PIGGYBACK IV SCH (08:00)
[2023-03-09] MEDS: ELIQUIS PO SCH (09:47)
[2023-03-09] MEDS: VITAMIN D3 25 mcg (1,000 UNITS) PO SCH (09:47)
[2023-03-09] MEDS: COZAAR PO SCH (09:47)
[2023-03-09] MEDS: JANUVIA PO SCH (09:47)
[2023-03-09] MEDS: ZINC SULFATE PO SCH (09:47)
[2023-03-09] MEDS: ZYLOPRIM PO SCH (09:47)
[2023-03-09] MEDS: ALBUMIN HUMAN 25%- 100 ML 100 ML IV SCH (10:00)
[2023-03-09] MEDS: CARDIZEM CD 180 MG 24-HR PO SCH (10:14)
[2023-03-09] MEDS: TOPROL XL PO SCH (10:15)
[2023-03-09 10:16] VITALS: BP 115/76; PULSE 50; RESP 20; TEMP 97; O2SAT 95
[2023-03-09] MEDS ORDERED: D50W ABBOJECT SYR ONE (11:42)
[2023-03-09] MEDS ORDERED: D50W ABBOJECT SYR IV ONE (11:42)
[2023-03-09] MEDS ORDERED: D5 1/2 NS 1,000 ML 1,000 ML IV SCH (12:00)
--- NOTE | 2023-03-09 13:37 | PCM.PROG ---
Progress Note Progress Note for Day of Date of Exam: 03/09/23 Subjective Subjective: Patient is a 88-year-old female with a history of hypothyroidism, diabetes mellitus, hyperlipidemia, COPD(BL~2L), atrial fibrillation that was admitted for acute respiratory failure and COPD exacerbation. This morning she is currently on BiPAP support. RT attempted to remove BiPAP and transition oxygen method however patient did not tolerate. Labs: WBC 7.2, hemoglobin 9.4, platelets 119, sodium 143, potassium 4.2, creatinine 1.03, glucose 111. ABG this morning: pH 7.41, pCO2 70, pO2 67, HCO3 44, O2sat 93% on FiO2 45%. Urine and blood cultures no growth to date. Chest x-ray was ordered results pending. Antibiotics: IV vancomycin, and Zosyn for empiric treatment. Will discontinue v ancomycin. Holding Toprol and Cardizem today due to bradycardia. Patient's recent FSBG in the 50s, will start on IV fluids D5 half-normal saline at 75 mL/h. Amp of D50 given. Order Solu-Medrol 40 mg every 8 hours. We will consult [place] telemedicine service due to continued BiPAP support. Otherwise, continue with current treatment plan. We will continue to closely monitor. Critical care time spent on clinical assessment, reviewing labs and imaging, decision making, and documentation greater than 45 minutes. Past Medical Family Social History Allergies: Allergies iron Allergy (Verified 02/25/23 16:51) Review of Systems ROS changes noted: see HPI Vital Signs and I&O's Vital Signs: Vital Signs Temperature 97.0 F Pulse Rate [Left Brachial] 50 Respiratory Rate 20 Blood Pressure [Left Arm] 115/76 O2 Sat by Pulse Oximetry 95 Intake and Output: Intake & Output 03/06/23 03/07/23 03/08/23 03/09/23 23:59 23:59 23:59 23:59 Intake Total 857 / 857 575 / 575 792 / 792 500 / 500 Output Total 100 / 100 Balance 757 / 757 575 / 575 792 / 792 500 / 500 Physical Exam Oriented: Other ([place]) Eyes: Normal Ear: Normal Nose: Normal Throat: Normal Respiratory: Diminished Cardiovascular: Normal : Normal Auscultation: Bowel Sounds: Normal Tenderness: Normal Skin: Normal Musculoskeletal: Normal Psychiatric: Normal Mood Description: Calm and Appropriate Affect: Normal Speech Pattern: Clear and Appropriate Laboratory and Diagnostics 03/09/23 05:25 03/09/23 05:25 Labs: 03/06/23 17:23 Blood Blood Culture - Preliminary 03/06/23 17:10 Blood Blood Culture - Preliminary 03/06/23 02:35 Urine,Clean Catch Urine Culture - Final Laboratory WBC 7.2 X10^3/uL (3.6-10.0) 03/09/23 05:25 RBC 2.95 X10^6/uL (3.5-5.4) L 03/09/23 05:25 Hgb 9.4 g/dL (12.0-16.0) L 03/09/23 05:25 Hct 29.3 % (36.0-47.0) L 03/09/23 05:25 MCV 99.5 fL (80.0-100.0) 03/09/23 05:25 MCH 32.0 pg (27.0-34.0) 03/09/23 05:25 MCHC 32.2 g/dL (33.0-35.0) L 03/09/23 05:25 RDW 15.7 % (11.6-16.5) 03/09/23 05:25 Plt Count 119 X10^3/uL (150.0-450.0) L 03/09/23 05:25 MPV 10.1 fL (7.4-11.0) 03/09/23 05:25 Neut % (Auto) 81.5 % (42.0-75.0) H 03/09/23 05:25 Lymph % (Auto) 5.9 % (21.0-51.0) L 03/09/23 05:25 [place] % (Auto) 9.1 % (0.0-13.0) 03/09/23 05:25 Eos % (Auto) 2.1 % (0.9-2.9) 03/09/23 05:25 Baso % (Auto) 1.4 % (0.2-1.0) H 03/09/23 05:25 Neut # (Auto) 5.8 x10^3/uL (2.2-4.8) H 03/09/23 05:25 Lymph # (Auto) 0.4 X10^3/uL (1.3-2.9) L 03/09/23 05:25 [place] # (Auto) 0.6 x10^3/uL (0.3-0.8) 03/09/23 05:25 Eos # (Auto) 0.2 x10^3/uL (0.0-0.2) 03/09/23 05:25 Baso # (Auto) 0.1 X10^3/uL (0.0-0.1) 03/09/23 05:25 Absolute Nucleated RBC 0.0 /100WBC 03/09/23 05:25 Sample Site Rr 03/09/23 05:00 ABG pH 7.410 (7.35-7.45) 03/09/23 05:00 ABG pCO2 70.0 mmHg (35.0-45.0) H* 03/09/23 05:00 ABG pO2 67.0 mmHg (80.0-100.0) L 03/09/23 05:00 ABG HCO3 44.4 mmol/L (22-26) H* 03/09/23 05:00 ABG O2 Saturation 93.0 % (90-100) 03/09/23 05:00 ABG Base Excess 16.4 mmol/L (-2.0-2.0) H 03/09/23 05:00 Pal Test Pos 03/09/23 05:00 A-a Gradient 166.0 mmHg 03/09/23 05:00 FiO2 45.0 03/09/23 05:00 Blood Gas Comments Barbara well sw 03/09/23 05:00 Sodium 143 mmol/L (136-145) 03/09/23 05:25 Corrected Sodium 143 mmol/L (136-145) 03/09/23 05:25 Potassium 4.2 mmol/L (3.5-5.1) 03/09/23 05:25 Chloride 103 mmol/L (98-107) 03/09/23 05:25 Carbon Dioxide 39.8 mmol/L (21-32) H 03/09/23 05:25 BUN 25 mg/dL (7-18) H 03/09/23 05:25 Creatinine 1.03 mg/dL (0.55-1.02) H 03/09/23 05:25 Est GFR (MDRD) Af Amer > 60 (>60) 03/09/23 05:25 Est GFR (MDRD) Non-Af 54 (>60) L 03/09/23 05:25 Glucose 111 mg/dL (65-99) H 03/09/23 05:25 POC Glucose (mg/dL) 51 mg/dL (65-99) L 03/09/23 11:32 Calcium 9.3 mg/dL (8.5-10.1) 03/09/23 05:25 Corrected Calcium 10.4 mg/dL (8.5-10.1) H 03/09/23 05:25 Magnesium 2.3 mg/dL (2.0-2.9) 02/26/23 05:47 Total Bilirubin 0.50 mg/dL (0.2-1.0) 03/09/23 05:25 AST 32 Units/L (15-37) 03/09/23 05:25 ALT 51 Units/L (12-78) 03/09/23 05:25 Alkaline Phosphatase 144 Units/L (46-116) H 03/09/23 05:25 Total Protein 5.5 g/dL (6.4-8.2) L 03/09/23 05:25 Albumin 2.6 g/dL (3.4-5.0) L 03/09/23 05:25 Globulin 2.9 g/dL (2.5-4.5) 03/09/23 05:25 Albumin/Globulin Ratio 0.9 Ratio (1.1-2.1) L 03/09/23 05:25 Specimen Type Catherized urine 03/06/23 02:35 Urine Color Yellow (YELLOW) 03/06/23 02:35 Urine Appearance Slightly hazy (CLEAR) 03/06/23 02:35 Urine pH 5.0 (5.0 - 8.0) 03/06/23 02:35 Ur Specific [place] 1.030 (1.000-1.030) 03/06/23 02:35 Urine Protein 2+ (NEGATIVE) 03/06/23 02:35 Urine Glucose (UA) Negative (NEGATIVE) 03/06/23 02:35 Urine Ketones Negative (NEGATIVE) 03/06/23 02:35 Urine Blood 2+ (NEGATIVE) 03/06/23 02:35 Urine Nitrite Negative (NEGATIVE) 03/06/23 02:35 Urine Bilirubin Negative (NEGATIVE) 03/06/23 02:35 Urine Urobilinogen Normal (NORMAL) 03/06/23 02:35 Ur Leukocyte Esterase 2+ (NEGATIVE) 03/06/23 02:35 Urine RBC 5-10 /HPF (0-3) A 03/06/23 02:35 Urine WBC 10-20 /HPF (0-5) A 03/06/23 02:35 Ur Squamous Epith Cells Few /HPF (NEGATIVE) 03/06/23 02:35 Amorphous Sediment 1+ /HPF (NEGATIVE) 03/06/23 02:35 Urine Bacteria 1+ /HPF (NEGATIVE) 03/06/23 02:35 Hyaline Casts Many /LPF (NEGATIVE) 03/06/23 02:35 Urine Mucus Few /HPF (NEGATIVE) 03/06/23 02:35 Ur Culture Indicated? Yes/culture set up 03/06/23 02:35 Plan (1) Hypercapnic respiratory failure: Status: Acute (2) Hypothyroidism: Status: Active (3) Diabetes mellitus type 2: Status: Active (4) Osteoarthritis: Status: Active (5) Essential hypertension: Status: Active (6) Hyperlipidemia: Status: Active (7) Chronic atrial fibrillation: Status: Acute
[2023-03-09] MEDS ORDERED: PHARMACY CONSULT - TPN XX SCH (14:00)
[2023-03-09] MEDS ORDERED: SOLU-Medrol 40 MG VIAL IVP SCH (14:00)
[2023-03-09] MEDS ORDERED: NS 100 ML IV 100 ML ONE (14:13)
[2023-03-09] MEDS ORDERED: OMNIPAQUE 350 mg/mL 100 mL BTL 100 ML ONE (14:13)
[2023-03-09] MEDS ORDERED: CLINIMIX 4.25 %/10 % 1,000 ML with MVI INJ (ADULT) 10 ML IV SCH ×2 (15:00)
[2023-03-09] MEDS ORDERED: CLINIMIX 4.25%-5% 1,000 ML with MVI INJ (ADULT) 10 ML IV SCH ×2 (16:00)
--- NOTE | 2023-03-09 16:34 | RAD ---
EXAM:CHEST x-ray, 1 VIEWHISTORY:PNEUMONIA; [id number]:X-ray 03/09/2023FINDINGS:There is CHF with moderate bilateral pleural effusions and likely associated atelectasis. There may be mild pulmonary edema, [id number]-left. No pneumothorax is seen. Findings are very similar to prior study.IMPRESSION:CHF with moderate pleural effusions and probable mild pulmonary edema.THIS IS AN ELECTRONICALLY VERIFIED FINAL [id number]/09/2023 4:31 PM - Electronically signed by Juaquin Elise MD
--- NOTE | 2023-03-09 17:02 | CT ---
EXAM:CHEST WITH CONTRASTHISTORY:resp distress;COMPARISON:None available.TECHNIQUE:Multiple axial images of the chest were obtained from the thoracic inlet to the upper abdomen after the administration of IV contrast. Dose reduction techniques including Automated Exposure Control (AEC) and adjustment of mA and kV were utilized.FINDINGS:The mediastinum does not demonstrate significant pathological lymphadenopathy. There is no pericardial effusion observed. The thoracic aorta is normal in its contour without evidence for aneurysmal dilatation. Pulmonary arteries are not well evaluated due to timing of the bolus. The heart is enlarged and coronary arterial calcifications are noted.Evaluation of the lung parenchyma demonstrates moderate bilateral effusions with bibasilar consolidation probably due to atelectasis. There is no evidence to suggest CHF.. No pulmonary nodule or mass can be identified. The bony thorax is unremarkable in its appearance . The visualized portions of the upper abdomen are grossly unremarkable .IMPRESSION:Cardiomegaly with bilateral pleural effusions and passive atelectasis. There is no evidence to suggest CHF.THIS IS AN ELECTRONICALLY VERIFIED FINAL [id number]/09/2023 4:58 PM - Electronically signed by Bryan Slaughter MD
[2023-03-09] MEDS ORDERED: PHARMACY COMMENT IV SCH (17:45)
[2023-03-10] MEDS ORDERED: PHARMACY COMMENT IV ONE (07:30)
== END 2023-03-09 15:21 | disposition critical access hospital (66) | DRG 689 ==
LOC: MED/SURG 15:14
PROVIDERS: ADMIT Family Medicine; ATTEND Family Medicine
DX: J44.1 Chronic obstructive pulmonary disease with (acute) exacerbation; I48.20 Chronic atrial fibrillation, unspecified; N30.01 Acute cystitis with hematuria; J90 Pleural effusion, not elsewhere classified; Z20.822 Contact with and (suspected) exposure to COVID-19; N18.9 Chronic kidney disease, unspecified; Z66 Do not resuscitate; E11.65 Type 2 diabetes mellitus with hyperglycemia; Z51.89 Encounter for other specified aftercare; J18.8 Other pneumonia, unspecified organism; M19.90 Unspecified osteoarthritis, unspecified site; E78.5 Hyperlipidemia, unspecified; R53.1 Weakness; J96.02 Acute respiratory failure with hypercapnia; E03.8 Other specified hypothyroidism

== ENCOUNTER 2023-03-09 15:22 | Inpatient (IN) ==
[2023-03-09] MEDS ORDERED: XOPENEX 1.25 MG/3 ML NEBULE NEB PRN (16:14)
[2023-03-09] MEDS ORDERED: TYLENOL 325 MG TAB PO PRN (16:15)
--- NOTE | 2023-03-09 16:43 | DR.UPDATE ---
H&P Update Prescription drug monitoring program results: PDMP was not reviewed H&P Reviewed: Yes Any changes to H&P?: No Patient was examined?: Yes Vital Signs: Temp Pulse Resp BP Pulse Ox O2 Del Method FiO2 03/09/23 15:56 98.1 F 49 L 20 115/69 93 L Bi-pap 45 03/09/23 09:30 45 03/09/23 09:00 115/76 Procedures (ALL) - Central Line Placement PCM.CLCO: written consent Time out performed: Yes Patient placed pm monitor/pulse ox: Yes MD prep: mask, gown, gloves, other Centrial line prep: chlorhexidine scrub, sterile drapes applied Local anesthsia used: lidocane 1% Ultrasound used for placement: Yes (right ij was id'd via u/s and cannulation visualized) Central line lumen ininserted: triple Post procedure: sutured in place, good blood return, all ports aspirated, flushed,capped, sterile dressing applied Post procedure xray: tip oc catheter in good position (appears svc), no pneumothorax seen Patient tolerated procedure: Yes Complications: none
[2023-03-09] MEDS ORDERED: NovoLIN R (or HumuLIN R) SUBCUT PRN (16:48)
[2023-03-09] MEDS ORDERED: NYSTATIN POWDER TOP PRN (16:54)
[2023-03-09] MEDS ORDERED: LASIX IVP ONE (16:55)
--- NOTE | 2023-03-09 16:56 | RAD ---
EXAM:CHEST, 1 VIEWHISTORY:central line placement;COMPARISON:Radiograph earlier todayTECHNIQUE:Single frontal chest radiographFINDINGS:Cardiomegaly and veiling pleural effusions again noted with mild interstitial edema. Infiltrate in the left lower lung not excluded. Right IJ central venous line has been placed with tip to the mid SVC. No pneumothorax.IMPRESSION:Right IJ central venous line to the mid SVC, no pneumothorax.THIS IS AN ELECTRONICALLY VERIFIED FINAL [id number]/09/2023 4:47 PM - Electronically signed by Jw Paniagua MD
[2023-03-09] MEDS ORDERED: ULTRAM PO PRN (16:57)
[2023-03-09] MEDS ORDERED: DRUG FILTER EXTENSION SET ONE (18:08)
[2023-03-09 18:19] LABS: BILIRUBIN,URINE NEGATIVE (NEGATIVE); BLOOD/HEMOGLOBIN,URINE 2+ (NEGATIVE); GLUCOSE, URINE NEGATIVE (NEGATIVE); KETONES,URINE NEGATIVE (NEGATIVE); LEUKOCYTE ESTERASE ,URINE 2+ (NEGATIVE); NITRITES,URINE NEGATIVE (NEGATIVE); PROTEIN,URINE 3+ (NEGATIVE); UROBILINOGEN,URINE NORMAL (NORMAL)
[2023-03-09 18:21] LABS: APPEARANCE,URINE CLEAR (CLEAR); COLOR,URINE YELLOW (YELLOW)
[2023-03-09 18:27] LABS: BACTERIA,URINE TRACE /HPF (NEGATIVE); SQUAMOUS EPITHELIAL CELL,UR FEW /HPF (NEGATIVE)
[2023-03-09 18:28] LABS: COARSE GRANULAR CASTS,URINE RARE /HPF (NEGATIVE); HYALINE CASTS, URINE MODERATE /LPF (NEGATIVE)
[2023-03-09] MEDS: CLINIMIX 4.25%-5% 1,000 ML with MVI INJ (ADULT) 10 ML IV SCH ×2 (20:37)
[2023-03-09] MEDS: ELIQUIS PO SCH (20:39)
[2023-03-09] MEDS: PRAVACHOL PO SCH (20:39)
[2023-03-09] MEDS: ZOSYN VIAL 3.375 GRAMS 3.375 G in NS 100 ML IV 100 ML IV SCH (21:04)
[2023-03-09] MEDS: SNACK - Diabetic Appropriate PO SCH (21:13)
[2023-03-09] MEDS: SOLU-Medrol 40 MG VIAL IVP SCH (22:10)
[2023-03-10] MEDS: ZOSYN VIAL 3.375 GRAMS 3.375 G in NS 100 ML IV 100 ML IV SCH ×3 (05:43→22:29)
[2023-03-10] MEDS: CLINIMIX 4.25%-5% 1,000 ML with MVI INJ (ADULT) 10 ML IV SCH ×2 (05:43)
[2023-03-10] MEDS: SOLU-Medrol 40 MG VIAL IVP SCH ×3 (05:44→21:48)
[2023-03-10] MEDS: SYNTHROID 112 mcg TAB PO SCH (05:45)
[2023-03-10 06:28] LABS: BASOPHILS # (AUTO) 0.1 X10^3/uL (0.0-0.1); BASOPHILS % (AUTO) 0.7 % (0.2-1.0); EOSINOPHILS # (AUTO) 0.2 x10^3/uL (0.0-0.2); EOSINOPHILS % (AUTO) 3.2 % (0.9-2.9); HEMATOCRIT 27.9 % (36.0-47.0); HEMOGLOBIN 9.1 g/dL (12.0-16.0); LYMPHOCYTES # (AUTO) 0.5 X10^3/uL (1.3-2.9); LYMPHOCYTES % (AUTO) 7.4 % (21.0-51.0); MEAN CORPUSCULAR HGB CONC 32.5 g/dL (33.0-35.0); MEAN CORPUSCULAR VOLUME 98.4 fL (80.0-100.0); MEAN PLATELET VOLUME 10.3 fL (7.4-11.0); MONOCYTES # (AUTO) 0.7 x10^3/uL (0.3-0.8); MONOCYTES % (AUTO) 9.9 % (0.0-13.0); NEUTROPHILS # (AUTO) 5.5 x10^3/uL (2.2-4.8); NEUTROPHILS % (AUTO) 78.8 % (42.0-75.0); PLATELET COUNT 107 X10^3/uL (150.0-450.0); RED BLOOD COUNT 2.83 X10^6/uL (3.5-5.4)
[2023-03-10] MEDS: GLUCOTROL PO SCH (06:30)
[2023-03-10 06:37] LABS: ALANINE AMINOTRANSFERASE 34 Units/L (12-78); ALBUMIN 2.3 g/dL (3.4-5.0); ALKALINE PHOSPHATASE 105 Units/L (46-116); ASPARTATE AMINO TRANSFERASE 16 Units/L (15-37); BLOOD UREA NITROGEN 20 mg/dL (7-18); CALCIUM 8.6 mg/dL (8.5-10.1); CARBON DIOXIDE 38.4 mmol/L (21-32); CHLORIDE 101 mmol/L (98-107); COR NA(FOR HYPERGLY) 141 mmol/L (136-145); CREATININE 0.82 mg/dL (0.55-1.02); GLUCOSE 147 mg/dL (65-99); POTASSIUM 3.5 mmol/L (3.5-5.1); SODIUM 140 mmol/L (136-145); eGFR NON BLACK RACES > 60 (>60)
[2023-03-10] MEDS ORDERED: PHARMACY COMMENT IV NR (07:30)
[2023-03-10] MEDS ORDERED: VANCOMYCIN IV *PREMIX 1 G/200 ML BAG 1 G/200 ML PIGGYBACK IV SCH (08:00)
[2023-03-10] MEDS ORDERED: TOPROL XL PO ONE (08:13)
[2023-03-10] MEDS: D5 1/2 NS 1,000 ML 1,000 ML IV SCH (08:21)
[2023-03-10] MEDS: ALBUMIN HUMAN 25%- 100 ML 100 ML IV SCH (08:24)
[2023-03-10 08:42] VITALS: BMI 40.8
[2023-03-10] MEDS: ELIQUIS PO SCH ×2 (08:50→20:41)
[2023-03-10] MEDS ORDERED: ZYLOPRIM PO SCH (09:00)
[2023-03-10] MEDS ORDERED: CARDIZEM CD 180 MG 24-HR PO SCH (09:00)
[2023-03-10] MEDS ORDERED: COZAAR PO SCH (09:00)
[2023-03-10] MEDS ORDERED: VITAMIN D3 25 mcg (1,000 UNITS) PO SCH (09:00)
[2023-03-10] MEDS ORDERED: ZINC SULFATE PO SCH (09:00)
[2023-03-10] MEDS ORDERED: JANUVIA PO SCH (09:00)
[2023-03-10] MEDS ORDERED: TOPROL XL PO SCH (09:00)
[2023-03-10 09:19] LABS: ABG BASE EXCESS 15.3 mmol/L (-2.0-2.0)
[2023-03-10 09:20] LABS: ABG ALLEN TEST POS; ABG HCO3 43.1 mmol/L (22-26)
[2023-03-10 10:01] LABS: CREATININE 0.83 mg/dL (0.55-1.02); VANCOMYCIN,TROUGH 11.2 ug/mL (15-20)
[2023-03-10] MEDS: TPN ELECTROLYTES IV SCH ×4 (10:27)
[2023-03-10] MEDS: MVI IV SCH ×4 (10:27)
[2023-03-10] MEDS: CLINIMIX IV SCH ×4 (10:27)
[2023-03-10] MEDS: [UNRECOGNIZED DRUG - OTHER] IV SCH ×4 (10:27)
[2023-03-10] MEDS: VANCOMYCIN IV *PREMIX 1 G/200 ML BAG 1 G/200 ML PIGGYBACK IV SCH ×2 (11:47→20:42)
--- NOTE | 2023-03-10 13:15 | RAD ---
EXAM:CHEST x-ray, 1 VIEWHISTORY:BIPAP -COMPARISON:X-ray 03/09/2023FINDINGS:Central venous catheter terminates in the region of the distal SVC. There is likely CHF and pulmonary edema. Moderate pleural effusions are suspected, [id number]-right. Appearance is unchanged. No pneumothorax is seen.IMPRESSION:Appearance of the chest is unchanged.THIS IS AN ELECTRONICALLY VERIFIED FINAL [id number]/10/2023 1:11 PM - Electronically signed by Juaquin Elise MD
[2023-03-10] MEDS ORDERED: LASIX IVP SCH (15:00)
--- NOTE | 2023-03-10 18:42 | PCM.PROG ---
Progress Note Progress Note for Day of Date of Exam: 03/10/23 Subjective Subjective: Patient is a 88-year-old female with a history of hypothyroidism, diabetes mellitus, hyperlipidemia, COPD(BL~2L), atrial fibrillation that was admitted for acute respiratory failure and COPD exacerbation. This morning she remains on BiPAP support. Labs: WBC 7.0, hemoglobin 9.1, platelets 107, sodium 140, potassium 3.5, creatinine 0.82, glucose 147. ABG this morning: pH 7.41, pCO2 68, pO2 75, HCO3 43, O2sat 95% on FiO2 45%. Urine and blood cultures no growth to date. Chest x-ray was obtained that revealed: There is likely CHF and pulmonary edema. Moderate pleural effusions are suspected, [id number]-right. Appearance is unchanged. No pneumothorax is seen. Antibiotics: IV Zosyn for empiric treatment. Continue IV fluids D5 half-normal saline at 75 mL/h, IV Solu-Medrol 40 mg every 8 hours. [place] telemedicine recommendations reviewed. Order echo and D-dimer. Order IV lasix 40mg BID. Discussed with family prognosis of patient, they are in agreement with plan of care and possible outcomes. We will attempt to see if patient can tolerate heated high flow oxygen today. Otherwise, continue with current treatment plan. We will continue to closely monitor. Critical care time spent on clinical assessment, reviewing labs and imaging, decision making, and documentation greater than 45 minutes. Past Medical Family Social History Past Med/Fam/Surg Hx: No changes since H&P Allergies: Allergies iron Allergy (Verified 02/25/23 16:51) Review of Systems ROS changes noted: see HPI Vital Signs and I&O's Vital Signs: Vital Signs Temperature 98.8 F Pulse Rate [Bilateral Radial] 83 Respiratory Rate 32 Respiratory Rate 24 Blood Pressure [Left Arm] 124/67 O2 Sat by Pulse Oximetry 93 Intake and Output: Intake & Output 03/07/23 03/08/23 03/09/23 03/10/23 23:59 23:59 23:59 23:59 Intake Total 659 / 659 1113 / 1113 Output Total 500 / 500 100 / 100 Balance 159 / 159 1013 / 1013 Physical Exam Oriented: Other (Alert, on BiPAP) Eyes: Normal Nose: Normal Respiratory: Diminished Cardiovascular: Normal : Other ([place]) Auscultation: Bowel Sounds: Normal Palpation: Normal Tenderness: Normal Skin: Normal Musculoskeletal: Normal Psychiatric: Normal Speech Pattern: Clear and Appropriate Laboratory and Diagnostics 03/10/23 05:18 03/10/23 09:31 Labs: Laboratory WBC 7.0 X10^3/uL (3.6-10.0) 03/10/23 05:18 RBC 2.83 X10^6/uL (3.5-5.4) L 03/10/23 05:18 Hgb 9.1 g/dL (12.0-16.0) L 03/10/23 05:18 Hct 27.9 % (36.0-47.0) L 03/10/23 05:18 MCV 98.4 fL (80.0-100.0) 03/10/23 05:18 MCH 32.0 pg (27.0-34.0) 03/10/23 05:18 MCHC 32.5 g/dL (33.0-35.0) L 03/10/23 05:18 RDW 15.0 % (11.6-16.5) 03/10/23 05:18 Plt Count 107 X10^3/uL (150.0-450.0) L 03/10/23 05:18 MPV 10.3 fL (7.4-11.0) 03/10/23 05:18 Neut % (Auto) 78.8 % (42.0-75.0) H 03/10/23 05:18 Lymph % (Auto) 7.4 % (21.0-51.0) L 03/10/23 05:18 [place] % (Auto) 9.9 % (0.0-13.0) 03/10/23 05:18 Eos % (Auto) 3.2 % (0.9-2.9) H 03/10/23 05:18 Baso % (Auto) 0.7 % (0.2-1.0) 03/10/23 05:18 Neut # (Auto) 5.5 x10^3/uL (2.2-4.8) H 03/10/23 05:18 Lymph # (Auto) 0.5 X10^3/uL (1.3-2.9) L 03/10/23 05:18 [place] # (Auto) 0.7 x10^3/uL (0.3-0.8) 03/10/23 05:18 Eos # (Auto) 0.2 x10^3/uL (0.0-0.2) 03/10/23 05:18 Baso # (Auto) 0.1 X10^3/uL (0.0-0.1) 03/10/23 05:18 Absolute Nucleated RBC 0.1 /100WBC 03/10/23 05:18 Sample Site Lr 03/10/23 09:11 ABG pH 7.410 (7.35-7.45) 03/10/23 09:11 ABG pCO2 68.0 mmHg (35.0-45.0) H* 03/10/23 09:11 ABG pO2 75.0 mmHg (80.0-100.0) L 03/10/23 09:11 ABG HCO3 43.1 mmol/L (22-26) H* 03/10/23 09:11 ABG O2 Saturation 95.0 % (90-100) 03/10/23 09:11 ABG Base Excess 15.3 mmol/L (-2.0-2.0) H 03/10/23 09:11 Pal Test Pos 03/10/23 09:11 A-a Gradient 161.0 mmHg 03/10/23 09:11 FiO2 45.0 03/10/23 09:11 Blood Gas Comments Pt mariam well cdn 03/10/23 09:11 Sodium 140 mmol/L (136-145) 03/10/23 05:18 Corrected Sodium 141 mmol/L (136-145) 03/10/23 05:18 Potassium 3.5 mmol/L (3.5-5.1) 03/10/23 05:18 Chloride 101 mmol/L (98-107) 03/10/23 05:18 Carbon Dioxide 38.4 mmol/L (21-32) H 03/10/23 05:18 BUN 20 mg/dL (7-18) H 03/10/23 05:18 Creatinine 0.83 mg/dL (0.55-1.02) 03/10/23 09:31 Est GFR (MDRD) Af Amer > 60 (>60) 03/10/23 05:18 Est GFR (MDRD) Non-Af > 60 (>60) 03/10/23 05:18 Glucose 147 mg/dL (65-99) H 03/10/23 05:18 POC Glucose (mg/dL) 255 mg/dL (65-99) H 03/10/23 16:23 Calcium 8.6 mg/dL (8.5-10.1) 03/10/23 05:18 Corrected Calcium 10.0 mg/dL (8.5-10.1) 03/10/23 05:18 Magnesium 1.6 mg/dL (2.0-2.9) L 03/10/23 05:18 Total Bilirubin 0.40 mg/dL (0.2-1.0) 03/10/23 05:18 AST 16 Units/L (15-37) 03/10/23 05:18 ALT 34 Units/L (12-78) 03/10/23 05:18 Alkaline Phosphatase 105 Units/L (46-116) 03/10/23 05:18 Total Protein 5.0 g/dL (6.4-8.2) L 03/10/23 05:18 Albumin 2.3 g/dL (3.4-5.0) L 03/10/23 05:18 Globulin 2.7 g/dL (2.5-4.5) 03/10/23 05:18 Albumin/Globulin Ratio 0.9 Ratio (1.1-2.1) L 03/10/23 05:18 Specimen Type Catherized urine 03/09/23 18:00 Urine Color Yellow (YELLOW) 03/09/23 18:00 Urine Appearance Clear (CLEAR) 03/09/23 18:00 Urine pH 5.0 (5.0 - 8.0) 03/09/23 18:00 Ur Specific [place] 1.015 (1.000-1.030) 03/09/23 18:00 Urine Protein 3+ (NEGATIVE) 03/09/23 18:00 Urine Glucose (UA) Negative (NEGATIVE) 03/09/23 18:00 Urine Ketones Negative (NEGATIVE) 03/09/23 18:00 Urine Blood 2+ (NEGATIVE) 03/09/23 18:00 Urine Nitrite Negative (NEGATIVE) 03/09/23 18:00 Urine Bilirubin Negative (NEGATIVE) 03/09/23 18:00 Urine Urobilinogen Normal (NORMAL) 03/09/23 18:00 Ur Leukocyte Esterase 2+ (NEGATIVE) 03/09/23 18:00 Urine RBC 3-5 /HPF (0-3) A 03/09/23 18:00 Urine WBC 20-30 /HPF (0-5) A 03/09/23 18:00 Ur Squamous Epith Cells Few /HPF (NEGATIVE) 03/09/23 18:00 Amorphous Sediment 1+ /HPF (NEGATIVE) 03/09/23 18:00 Urine Bacteria Trace /HPF (NEGATIVE) 03/09/23 18:00 Hyaline Casts Moderate /LPF (NEGATIVE) 03/09/23 18:00 Coarse Granular Casts Rare /HPF (NEGATIVE) 03/09/23 18:00 Urine Mucus Few /HPF (NEGATIVE) 03/09/23 18:00 Ur Culture Indicated? Yes/culture set up 03/09/23 18:00 Vancomycin Trough 11.2 ug/mL (15-20) L 03/10/23 09:31 Plan (1) Hypercapnic respiratory failure: Status: Acute (2) Chronic atrial fibrillation: Status: Acute (3) Essential hypertension: Status: Active (4) Diabetes mellitus type 2: Status: Active (5) Hypothyroidism: Status: Active (6) COPD exacerbation: Status: Acute
[2023-03-10] MEDS: SNACK - Diabetic Appropriate PO SCH (19:00)
[2023-03-10] MEDS: PRAVACHOL PO SCH (20:41)
[2023-03-11] MEDS: CLINIMIX IV SCH ×8 (01:42→03:21)
[2023-03-11] MEDS: [UNRECOGNIZED DRUG - OTHER] IV SCH ×8 (01:42→03:21)
[2023-03-11] MEDS: TPN ELECTROLYTES IV SCH ×8 (01:42→03:21)
[2023-03-11] MEDS: MVI IV SCH ×8 (01:42→03:21)
[2023-03-11] MEDS ORDERED: DRUG FILTER EXTENSION SET ONE (03:06)
[2023-03-11] MEDS: SOLU-Medrol 40 MG VIAL IVP SCH (05:55)
[2023-03-11] MEDS: ZOSYN VIAL 3.375 GRAMS 3.375 G in NS 100 ML IV 100 ML IV SCH (05:55)
--- NOTE | 2023-03-11 06:16 | RAD ---
EXAM:CHEST, 1 VIEWHISTORY:HYPOXIA, PNEUMONIA, F/U BIPAP ;COMPARISON:03/10/2023FINDINGS:The cardiomediastinal silhouette is stable. Right IJ central venous catheter unchanged.Similar bilateral pleural-parenchymal opacities, [id number]-right. No pneumothorax.No acute osseous abnormality.IMPRESSION:Similar bilateral pleural-parenchymal opacities. Recommend follow-up to resolution.THIS IS AN ELECTRONICALLY VERIFIED FINAL [id number]/11/2023 6:13 AM - Electronically signed by Trey Adame MD
[2023-03-11] MEDS: SYNTHROID 112 mcg TAB PO SCH (06:27)
[2023-03-11] MEDS: GLUCOTROL PO SCH (06:28)
[2023-03-11 06:49] LABS: BASOPHILS % (AUTO) 0.3 % (0.2-1.0); HEMATOCRIT 31.4 % (36.0-47.0); HEMOGLOBIN 9.8 g/dL (12.0-16.0); LYMPHOCYTES # (AUTO) 0.5 X10^3/uL (1.3-2.9); LYMPHOCYTES % (AUTO) 4.9 % (21.0-51.0); MEAN CORPUSCULAR HEMOGLOBIN 31.7 pg (27.0-34.0); MEAN CORPUSCULAR HGB CONC 31.4 g/dL (33.0-35.0); MEAN CORPUSCULAR VOLUME 101.2 fL (80.0-100.0); MONOCYTES # (AUTO) 0.3 x10^3/uL (0.3-0.8); MONOCYTES % (AUTO) 2.9 % (0.0-13.0); NEUTROPHILS # (AUTO) 10.3 x10^3/uL (2.2-4.8); NEUTROPHILS % (AUTO) 91.9 % (42.0-75.0); PLATELET COUNT 158 X10^3/uL (150.0-450.0); RED CELL DISTRIBUTION WIDTH 15.3 % (11.6-16.5); WHITE BLOOD COUNT 11.2 X10^3/uL (3.6-10.0)
[2023-03-11 06:59] LABS: ALBUMIN 3.1 g/dL (3.4-5.0); CARBON DIOXIDE 38.5 mmol/L (21-32); COR CA(FOR HYPOALB) 9.7 mg/dL (8.5-10.1); CREATININE 1.15 mg/dL (0.55-1.02); POTASSIUM 4.1 mmol/L (3.5-5.1); TOTAL PROTEIN 6.4 g/dL (6.4-8.2)
[2023-03-11 07:53] LABS: BAND NEUTROPHILS % 1 % (0-10); PLATELET MORPHOLOGY COMMENT NORMAL (NORMAL); STOMATOCYTES SLIGHT
[2023-03-11] MEDS ORDERED: TOPROL XL PO ONE (08:04)
[2023-03-11] MEDS: ALBUMIN HUMAN 25%- 100 ML 100 ML IV SCH (08:20)
[2023-03-11] MEDS ORDERED: MORPHINE SULFATE INJ 2 MG INJ ONE (08:36)
[2023-03-11] MEDS: MORPHINE SULFATE INJ 2 MG INJ IVP PRN ×3 (08:49→13:07)
[2023-03-11 08:50] VITALS: RESP 24
[2023-03-11] MEDS ORDERED: LASIX IVP SCH (09:00)
[2023-03-11 09:43] VITALS: BP 137/60; PULSE 64; TEMP 97.8; O2SAT 82
[2023-03-11] MEDS: D5 1/2 NS 1,000 ML 1,000 ML IV SCH (09:43)
[2023-03-11] MEDS: ATIVAN INJ 2 MG VIAL IVP PRN ×2 (10:49→13:06)
[2023-03-11] MEDS ORDERED: PHARMACY COMMENT IV NR (20:30)
--- NOTE | 2023-03-12 10:53 | W.DIS.FURT ---
Summary of Discharge Discharge Summary of Date Date of Exam: 03/11/23 Admission Date Date of Admission: 02/25/23 Admission Diagnosis Hospital Course: Patient is a 88-year-old female with a history of hypothyroidism, diabetes mellitus, hyperlipidemia, COPD(BL~2L), atrial fibrillation that was admitted for acute respiratory failure and COPD exacerbation while she was recovering as swing bed status. Pt did require BiPAP support and she was treated with Antibiotics: IV Zosyn for empiric treatment, IV fluids D5 half-normal saline at 75 mL/h, IV Solu-Medrol 40 mg every 8 hours. [place] telemedicine was consulted and recommendations given. Pt had echo that revealed cardiomegaly and severe pulmonary hypertension. Her symptoms did not improve and progressively worsened. Discussed with family poor prognosis of patient, they were in agreement with plan of care which was comfort care measures. Pt on 03/11/2023. Vital Signs: Vital Signs (72 hours) 03/09/23 09:00 03/09/23 09:30 03/09/23 15:56 Temperature 98.1 F Pulse Rate [Bilateral Radial] 49 L Respiratory Rate 20 Blood Pressure [Left Arm] 115/76 115/69 O2 Sat by Pulse Oximetry 93 L Oxygen Delivery Method Bi-pap Oxygen Flow Rate FIO2% 45 45 03/09/23 15:36 03/09/23 19:00 03/09/23 20:45 Temperature Pulse Rate [Bilateral Radial] Respiratory Rate Blood Pressure [Left Arm] O2 Sat by Pulse Oximetry Oxygen Delivery Method Bi-pap Bi-pap Oxygen Flow Rate FIO2% 45 45 45 03/09/23 20:45 03/09/23 20:00 03/10/23 00:00 Temperature 98.4 F 98.0 F Pulse Rate [Bilateral Radial] 64 65 Respiratory Rate 20 20 Blood Pressure [Left Arm] 164/72 132/74 O2 Sat by Pulse Oximetry 96 92 L Oxygen Delivery Method Bi-pap Oxygen Flow Rate FIO2% 45 03/10/23 04:00 03/10/23 09:20 03/10/23 08:19 Temperature 98.6 F Pulse Rate [Bilateral Radial] 64 Respiratory Rate 20 24 Blood Pressure [Left Arm] 126/73 O2 Sat by Pulse Oximetry 95 Oxygen Delivery Method Heated High Flow NC Oxygen Flow Rate 10 FIO2% 65 45 03/10/23 08:19 03/10/23 07:00 03/10/23 08:00 Temperature 98.7 F Pulse Rate [Bilateral Radial] 67 Respiratory Rate 18 Blood Pressure [Left Arm] 123/78 O2 Sat by Pulse Oximetry 96 Oxygen Delivery Method Bi-pap Bi-pap Oxygen Flow Rate FIO2% 45 45 03/10/23 12:00 03/10/23 16:00 03/10/23 19:47 Temperature 98.8 F 98.2 F 98.7 F Pulse Rate [Bilateral Radial] 83 77 77 Respiratory Rate 32 H 28 H 20 Blood Pressure [Left Arm] 124/67 121/65 117/71 O2 Sat by Pulse Oximetry 93 L 91 L 92 L Oxygen Delivery Method Heated High Flow NC Heated High Flow NC Heated High Flow NC Oxygen Flow Rate FIO2% 03/10/23 19:00 03/11/23 00:00 03/10/23 20:35 Temperature 98.4 F Pulse Rate [Bilateral Radial] 77 Respiratory Rate 20 Blood Pressure [Left Arm] 126/65 O2 Sat by Pulse Oximetry 94 L Oxygen Delivery Method Heated High Flow NC Heated High Flow NC Heated High Flow NC Oxygen Flow Rate 10 FIO2% 71 70 03/11/23 04:00 03/11/23 06:00 03/11/23 10:48 Temperature 98.9 F Pulse Rate [Bilateral Radial] 62 Respiratory Rate 20 24 Blood Pressure [Left Arm] 132/61 O2 Sat by Pulse Oximetry 92 L Oxygen Delivery Method Heated High Flow NC Heated High Flow NC Oxygen Flow Rate 10 FIO2% 70 03/11/23 08:49 03/11/23 07:00 03/11/23 08:00 Temperature 97.8 F Pulse Rate [Bilateral Radial] 64 Respiratory Rate 24 20 Blood Pressure [Left Arm] 137/60 O2 Sat by Pulse Oximetry 82 L Oxygen Delivery Method Heated High Flow NC Heated High Flow NC Oxygen Flow Rate FIO2% 71 03/11/23 09:19 03/11/23 11:18 03/11/23 13:07 Temperature Pulse Rate [Bilateral Radial] Respiratory Rate 24 24 24 Blood Pressure [Left Arm] O2 Sat by Pulse Oximetry Oxygen Delivery Method Oxygen Flow Rate FIO2% Labs: Laboratory Last Values WBC 11.2 X10^3/uL (3.6-10.0) H 03/11/23 06:03 RBC 3.10 X10^6/uL (3.5-5.4) L 03/11/23 06:03 Hgb 9.8 g/dL (12.0-16.0) L 03/11/23 06:03 Hct 31.4 % (36.0-47.0) L 03/11/23 06:03 MCV 101.2 fL (80.0-100.0) H 03/11/23 06:03 MCH 31.7 pg (27.0-34.0) 03/11/23 06:03 MCHC 31.4 g/dL (33.0-35.0) L 03/11/23 06:03 RDW 15.3 % (11.6-16.5) 03/11/23 06:03 Plt Count 158 X10^3/uL (150.0-450.0) 03/11/23 06:03 Plt Count Comment Adequate (ADEQUATE) 03/11/23 06:03 MPV 10.0 fL (7.4-11.0) 03/11/23 06:03 Neut % (Auto) 91.9 % (42.0-75.0) H 03/11/23 06:03 Lymph % (Auto) 4.9 % (21.0-51.0) L 03/11/23 06:03 [place] % (Auto) 2.9 % (0.0-13.0) 03/11/23 06:03 Eos % (Auto) 0.0 % (0.9-2.9) L 03/11/23 06:03 Baso % (Auto) 0.3 % (0.2-1.0) 03/11/23 06:03 Neut # (Auto) 10.3 x10^3/uL (2.2-4.8) H 03/11/23 06:03 Lymph # (Auto) 0.5 X10^3/uL (1.3-2.9) L 03/11/23 06:03 [place] # (Auto) 0.3 x10^3/uL (0.3-0.8) 03/11/23 06:03 Eos # (Auto) 0.0 x10^3/uL (0.0-0.2) 03/11/23 06:03 Baso # (Auto) 0.0 X10^3/uL (0.0-0.1) 03/11/23 06:03 Absolute Nucleated RBC 0.1 /100WBC 03/11/23 06:03 Total Counted 100 03/11/23 06:03 Neutrophils % (Manual) 86 % (39-76) H 03/11/23 06:03 Band Neutrophils % 1 % (0-10) 03/11/23 06:03 Lymphocytes % (Manual) 10 % (13-43) L 03/11/23 06:03 Monocytes % (Manual) 3 % (4-9) L 03/11/23 06:03 Plt Morphology Comment Normal (NORMAL) 03/11/23 06:03 RBC Morphology Abnormal (NORMAL) A 03/11/23 06:03 Stomatocytes Slight A 03/11/23 06:03 D-Dimer 4.95 ug/ml (0.0-0.57) H 03/10/23 19:25 Sample Site Lr 03/10/23 09:11 ABG pH 7.410 (7.35-7.45) 03/10/23 09:11 ABG pCO2 68.0 mmHg (35.0-45.0) H* 03/10/23 09:11 ABG pO2 75.0 mmHg (80.0-100.0) L 03/10/23 09:11 ABG HCO3 43.1 mmol/L (22-26) H* 03/10/23 09:11 ABG O2 Saturation 95.0 % (90-100) 03/10/23 09:11 ABG Base Excess 15.3 mmol/L (-2.0-2.0) H 03/10/23 09:11 Pal Test Pos 03/10/23 09:11 A-a Gradient 161.0 mmHg 03/10/23 09:11 FiO2 45.0 03/10/23 09:11 Blood Gas Comments Pt mariam well cdn 03/10/23 09:11 Sodium 138 mmol/L (136-145) 03/11/23 06:03 Corrected Sodium 142 mmol/L (136-145) 03/11/23 06:03 Potassium 4.1 mmol/L (3.5-5.1) 03/11/23 06:03 Chloride 99 mmol/L (98-107) 03/11/23 06:03 Carbon Dioxide 38.5 mmol/L (21-32) H 03/11/23 06:03 BUN 30 mg/dL (7-18) H 03/11/23 06:03 Creatinine 1.15 mg/dL (0.55-1.02) H 03/11/23 06:03 Est GFR (MDRD) Af Amer 57 (>60) L 03/11/23 06:03 Est GFR (MDRD) Non-Af 47 (>60) L 03/11/23 06:03 Glucose 262 mg/dL (65-99) H 03/11/23 06:03 POC Glucose (mg/dL) 255 mg/dL (65-99) H 03/10/23 16:23 Calcium 9.0 mg/dL (8.5-10.1) 03/11/23 06:03 Corrected Calcium 9.7 mg/dL (8.5-10.1) 03/11/23 06:03 Magnesium 1.6 mg/dL (2.0-2.9) L 03/10/23 05:18 Total Bilirubin 0.40 mg/dL (0.2-1.0) 03/11/23 06:03 AST 14 Units/L (15-37) L 03/11/23 06:03 ALT 34 Units/L (12-78) 03/11/23 06:03 Alkaline Phosphatase 104 Units/L (46-116) 03/11/23 06:03 Total Protein 6.4 g/dL (6.4-8.2) 03/11/23 06:03 Albumin 3.1 g/dL (3.4-5.0) L 03/11/23 06:03 Globulin 3.3 g/dL (2.5-4.5) 03/11/23 06:03 Albumin/Globulin Ratio 0.9 Ratio (1.1-2.1) L 03/11/23 06:03 Specimen Type Catherized urine 03/09/23 18:00 Urine Color Yellow (YELLOW) 03/09/23 18:00 Urine Appearance Clear (CLEAR) 03/09/23 18:00 Urine pH 5.0 (5.0 - 8.0) 03/09/23 18:00 Ur Specific [place] 1.015 (1.000-1.030) 03/09/23 18:00 Urine Protein 3+ (NEGATIVE) 03/09/23 18:00 Urine Glucose (UA) Negative (NEGATIVE) 03/09/23 18:00 Urine Ketones Negative (NEGATIVE) 03/09/23 18:00 Urine Blood 2+ (NEGATIVE) 03/09/23 18:00 Urine Nitrite Negative (NEGATIVE) 03/09/23 18:00 Urine Bilirubin Negative (NEGATIVE) 03/09/23 18:00 Urine Urobilinogen Normal (NORMAL) 03/09/23 18:00 Ur Leukocyte Esterase 2+ (NEGATIVE) 03/09/23 18:00 Urine RBC 3-5 /HPF (0-3) A 03/09/23 18:00 Urine WBC 20-30 /HPF (0-5) A 03/09/23 18:00 Ur Squamous Epith Cells Few /HPF (NEGATIVE) 03/09/23 18:00 Amorphous Sediment 1+ /HPF (NEGATIVE) 03/09/23 18:00 Urine Bacteria Trace /HPF (NEGATIVE) 03/09/23 18:00 Hyaline Casts Moderate /LPF (NEGATIVE) 03/09/23 18:00 Coarse Granular Casts Rare /HPF (NEGATIVE) 03/09/23 18:00 Urine Mucus Few /HPF (NEGATIVE) 03/09/23 18:00 Ur Culture Indicated? Yes/culture set up 03/09/23 18:00 Vancomycin Trough 11.2 ug/mL (15-20) L 03/10/23 09:31 Reason For Visit: HYPOXIA AND PNEUMONIA Discharge Date Discharge Date: 03/11/23 Discharge Diagnosis All Active Problems (Updated 03/10/23 @ 18:42 by Alo Calderon) COPD exacerbation (Acute) Hypercapnic respiratory failure (Acute) Chronic atrial fibrillation (Acute) Osteoarthritis of knee (Active) Hyperlipidemia (Active) Essential hypertension (Active) Asthma (Active) Arthritis (Active) Osteoarthritis (Active) Diabetes mellitus type 2 (Active) Hypothyroidism (Active) Plan of Treatment: Continue with present treatment and follow up plan. Pt is to keep follow up appointment as instructed and take medications as ordered. Discharge Medications Discharge Medications: iron Allergy (Verified 02/25/23 16:51) Discharge Plan Discharge Plan Hospital Course: Patient is a 88-year-old female with a history of hypothyroidism, diabetes mellitus, hyperlipidemia, COPD(BL~2L), atrial fibrillation that was admitted for acute respiratory failure and COPD exacerbation while she was recovering as swing bed status. Pt did require BiPAP support and she was treated with Antibiotics: IV Zosyn for empiric treatment, IV fluids D5 half-normal saline at 75 mL/h, IV Solu-Medrol 40 mg every 8 hours. [place] telemedicine was consulted and recommendations given. Pt had echo that revealed cardiomegaly and severe pulmonary hypertension. Her symptoms did not improve and progressively worsened. Discussed with family poor prognosis of patient, they were in agreement with plan of care which was comfort care measures. Pt on 03/11/2023. Patient Disposition: 20 Condition: Stable Health Concerns: Post Hospitalization: new medications and changes needed to prevent readmission or further decline. Pt educated and given instructions on all concerns. Plan of Treatment: Continue with present treatment and follow up plan. Pt is to keep follow up appointment as instructed and take medications as ordered. Prescriptions: No Action acetaminophen [Tylenol] 325 mg Tablet 650 mg PO Q6H diltiazem HCl 180 mg Capsule,Extended Release 24 Hr 180 mg PO DAILY metoprolol succinate 200 mg tablet extended release 24 hr 200 mg PO QDAY glipizide 10 mg Tablet 10 mg PO BID Rx Instructions: AC allopurinol 100 mg Tablet 100 mg PO DAILY zinc gluconate 50 mg Tablet 50 mg PO DAILY pravastatin 20 mg Tablet 40 mg PO HS losartan 100 mg tablet 100 mg PO QDAY levothyroxine [Synthroid] 112 mcg Tablet 112 mcg PO DAILY Januvia 25 mg Tablet 50 mg PO DAILY cholecalciferol (vitamin D3) [Vitamin D3] 50 mcg (2,000 unit) Tablet 2,000 mcg PO DAILY Eliquis 2.5 mg Tablet 2.5 mg PO BID fluticasone furoate-vilanterol [Breo Ellipta] 200-25 mcg/dose Blister With Device 1 inh INHALATION DAILY Combivent Respimat 20-100 mcg/actuation Mist 1 puff inhalation QID Orders to Discharge Patient Discharge Orders: Discharge (Routine); Ordered 03/11/23 Ordered By: Alo Calderon Follow ups/Referrals Follow ups/Referrals: ANGELA MELO [Primary Care Provider] - 1 WEEK
== END 2023-03-11 12:45 | disposition expired | DRG 194 ==
LOC: MED/SURG 15:22
PROVIDERS: ADMIT Family Medicine; ATTEND Family Medicine
DX: J90 Pleural effusion, not elsewhere classified; I48.20 Chronic atrial fibrillation, unspecified; E11.65 Type 2 diabetes mellitus with hyperglycemia; E03.8 Other specified hypothyroidism; I46.9 Cardiac arrest, cause unspecified; R09.02 Hypoxemia; J44.1 Chronic obstructive pulmonary disease with (acute) exacerbation; I27.20 Pulmonary hypertension, unspecified; J18.8 Other pneumonia, unspecified organism; Z66 Do not resuscitate; E78.2 Mixed hyperlipidemia